=== PATIENT | female | born 1945 | race Two or more races ===

== ENCOUNTER 2020-01-26 21:32 | Inpatient (IN) | payer MEDICARE ==
--- NOTE | 2020-01-26 21:57 | ED ---
Abdominal Pain HPI - General Chief Complaint: Abdominal Pain Stated Complaint: Acute cholecystitis Time Seen by Provider: 01/26/20 21:40 Source: patient, RN/MD, EMS, RN notes reviewed Mode of arrival: EMS Limitations: no limitations - History of Present Illness Initial Comments: This is a 74-year-old female with a history of right-sided breast cancer over 20 years ago who just recently moved back to [place] from [place] who started developing upper abdominal pain over last several days. She was seen at [facility] and diagnosed with acute cholecystitis. Patient was transferred here for further evaluation and treatment. Patient was found have an elevated white blood cell count cholecystitis and CAT scan. Upon arrival here she complained of 5/10 pain no nausea or vomiting however she denies any fevers chills or sweats. MD Complaint: abdominal pain - Related Data Allergies Allergy/AdvReac Type Severity Reaction Status Date / Time Sulfa (Sulfonamide Allergy Rash/Hives Verified 01/26/20 21:47 Antibiotics) Review of Systems ROS Statement: Those systems with pertinent positive or pertinent negative responses have been documented in the HPI. ROS Other: All systems not noted in ROS Statement are negative. Past Medical History Past Medical History: Asthma, Cancer Additional Past Medical History / Comment(s): Right breast cancer 1993, History of Any Multi-Drug Resistant Organisms: None Reported Past Surgical History: Breast Surgery, Tonsillectomy Past Psychological History: No Psychological Hx Reported Smoking Status: Never smoker Past Alcohol Use History: Occasional Past Drug Use History: None Reported General Exam - General Exam Comments Initial Comments: This is a well-developed well-nourished awake alert oriented 3 female Limitations: no limitations General appearance: alert, in no apparent distress Head exam: Present: atraumatic, normocephalic, normal inspection Eye exam: Present: normal appearance, PERRL, EOMI. Absent: scleral icterus, conjunctival injection, periorbital swelling ENT exam: Present: normal exam, mucous membranes moist Neck exam: Present: normal inspection. Absent: tenderness, meningismus, lymphadenopathy Respiratory exam: Present: normal lung sounds bilaterally. Absent: respiratory distress, wheezes, rales, rhonchi, stridor Cardiovascular Exam: Present: regular rate, normal rhythm, normal heart sounds. Absent: systolic murmur, diastolic murmur, rubs, gallop, clicks GI/Abdominal exam: Present: soft, tenderness (Tennis palpation of the right upper quadrant), normal bowel sounds. Absent: distended, guarding, rebound, rigid Extremities exam: Present: normal inspection, full ROM, normal capillary refill. Absent: tenderness, pedal edema, joint swelling, calf tenderness Back exam: Present: normal inspection Neurological exam: Present: alert, oriented X3, CN II-XII intact Psychiatric exam: Present: normal affect, normal mood Skin exam: Present: warm, dry, intact, normal color. Absent: rash Course Vital Signs 01/26/20 21:34 Temperature 98.1 F Pulse Rate 88 Respiratory 16 Rate Blood Pressure 147/80 O2 Sat by Pulse 98 Oximetry Medical Decision Making - Medical Decision Making I did review the material sent from [facility] and did discuss case with Dr. Pandey who did send the patient also with Dr. Alfred. Patient be admitted nothing by mouth after midnight IV antibiotics planned surgery in the morning. Disposition Clinical Impression: Acute cholecystitis, Abdominal pain Disposition: ADMITTED IP TO THIS HOSP Condition: Fair Referrals: None,Stated [Primary Care Provider] - 1-2 days
[2020-01-26] MEDS ORDERED: NALOXONE 0.4 MG/ML 1 ML VIAL IV PRN (21:58)
[2020-01-26] MEDS ORDERED: ONDANSETRON 4 MG/2 ML VIAL IVP PRN (21:58)
[2020-01-26] MEDS: SODIUM CHLORIDE 0.9% 1,000 ML IV SCH (22:05)
[2020-01-26] MEDS ORDERED: PIPERACILLIN-TAZOBACTAM 3.375 GM in SODIUM CHLORIDE 0.9% 100 ML IVPB SCH (22:30)
[2020-01-26] MEDS: HYDROmorphone 1 MG/ML 1 ML SYRINGE IVP PRN (23:21)
[2020-01-27] MEDS: HYDROmorphone 1 MG/ML 1 ML SYRINGE IVP PRN ×2 (07:47→13:11)
[2020-01-27] MEDS: PANTOPRAZOLE 40 MG/10 ML VIAL IV SCH (07:48)
[2020-01-27] MEDS: PIPERACILLIN-TAZOBACTAM 3.375 GM in SODIUM CHLORIDE 0.9% 100 ML IVPB SCH ×2 (07:48→17:13)
--- NOTE | 2020-01-27 10:30 | P.GSHP ---
History of Present Illness H&P Date: 01/27/20 Chief Complaint: Abdominal pain CHIEF COMPLAINT: Abdominal pain HISTORY OF PRESENT ILLNESS: 74-year-old female who was transferred from [facility] secondary to acute cholecystitis. Patient reports she began having abdominal pain yesterday. Pain is located in the right upper quadrant. Patient denies known gallbladder disease. PAST MEDICAL HISTORY: See list. PAST SURGICAL HISTORY: See list. SOCIAL HISTORY: No illicit drug use. REVIEW OF SYSTEMS: CONSTITUTIONAL: Denies fever or chills. HEENT: Denies blurred vision, vision changes, or eye pain. Denies hemoptysis CARDIOVASCULAR: Denies chest pain or pressure. RESPIRATORY: No shortness of breath. GASTROINTESTINAL: Refer to [facility] for pertinent findings HEMATOLOGIC: Denies bleeding disorders. GENITOURINARY: Denies any blood in urine. SKIN: Denies pruitis. Denies rash. PHYSICAL EXAM: VITAL SIGNS: Reviewed. GENERAL: Well-developed in no acute distress. HEENT: No sclera icterus. Extraocular movements grossly intact. Moist buccal mucosa. Head is atraumatic, normocephalic. ABDOMEN: Soft. Nondistended. Tenderness with palpation of right upper quadrant. NEUROLOGIC: Alert and oriented. Cranial nerves II through XII grossly intact. LABORATORY DATA: Pending IMAGING: CT abdomen and pelvis: Uncomplicated acute cholecystitis due to lodged 1.7 cm gallstone in the gallbladder neck ASSESSMENT: 1. Abdominal pain 2. Acute cholecystitis 3. Cholelithiasis PLAN: -Continue IV antibiotics. Monitor WBC -NPO -Patient to undergo laparoscopic cholecystectomy today with Dr. Alfred Nurse practitioner note has been reviewed by physician. Signing provider agrees with the documented findings, assessment, and plan of care. Past Medical History Past Medical History: Asthma, Cancer Additional Past Medical History / Comment(s): Right breast cancer 1993, History of Any Multi-Drug Resistant Organisms: None Reported Past Surgical History: Breast Surgery, Tonsillectomy Past Anesthesia/Blood Transfusion Reactions: No Reported Reaction Past Psychological History: No Psychological Hx Reported Smoking Status: Never smoker Past Alcohol Use History: Occasional Past Drug Use History: None Reported Medications and Allergies Home Medications Medication Instructions Recorded Confirmed Type No Known Home Medications 01/26/20 01/26/20 History Allergies Allergy/AdvReac Type Severity Reaction Status Date / Time Sulfa (Sulfonamide Allergy Rash/Hives Verified 01/26/20 22:19 Antibiotics) Surgical - Exam Vital Signs Temp Pulse Resp BP Pulse Ox 98.1 F 88 16 147/80 98 01/26/20 21:34 01/26/20 21:34 01/26/20 21:34 01/26/20 21:34 01/26/20 21:34
[2020-01-27 11:27] LABS: Basophils % (A) 0 %; Eosinophils # (A) 0.1 k/uL (0-0.7); Eosinophils % (A) 1 %; HCT 30.3 % (34.0-46.0); HGB 9.4 gm/dL (11.4-16.0); Hypochromasia Moderate; Lymphocytes # (A) 0.5 k/uL (1.0-4.8); Lymphocytes % (A) 5 %; MCH 31.9 pg (25.0-35.0); MCHC 30.9 g/dL (31.0-37.0); MCV 103.2 fL (80.0-100.0); Macrocytosis Slight; Mean Platelet Volume 7.2; Monocytes # (A) 0.5 k/uL (0-1.0); Monocytes % (A) 5 %; Neutrophils # (A) 7.7 k/uL (1.3-7.7); Neutrophils % (A) 88 %; Platelet Count 182 k/uL (150-450); RBC 2.93 m/uL (3.80-5.40); RDW 14.1 % (11.5-15.5); WBC 8.7 k/uL (3.8-10.6)
[2020-01-27 11:44] LABS: ALT 26 U/L (4-34); AST 38 U/L (14-36); African American GFR (CKD) >90 (>60 ml/min/1.73 sqM); Albumin 1.8 g/dL (3.5-5.0); Alkaline Phosphatase 26 U/L (38-126); Anion Gap 5 mmol/L; Blood Urea Nitrogen 4 mg/dL (7-17); Carbon Dioxide 14 mmol/L (22-30); Chloride 123 mmol/L (98-107); Glucose 82 mg/dL (74-99); Non-African American GFR(CKD) >90 (>60 ml/min/1.73 sqM); Sodium 142 mmol/L (137-145); Total Bilirubin 1.3 mg/dL (0.2-1.3); Total Protein 3.7 g/dL (6.3-8.2)
[2020-01-27 11:57] LABS: Potassium 2.4 mmol/L (3.5-5.1)
[2020-01-27 11:58] LABS: Calcium 4.9 mg/dL (8.4-10.2)
[2020-01-27] MEDS ORDERED: Potassium Replacement Protocol 1 EACH MISC MISCELLANE PRN ×2 (12:09→12:26)
[2020-01-27] MEDS ORDERED: POTASSIUM CHLORIDE 20 MEQ in WATER FOR INJECTION 1 100ML.BAG IVPB STA (12:09)
[2020-01-27] MEDS ORDERED: POTASSIUM CHLORIDE ER 20 MEQ TAB.ER PO STA (12:10)
[2020-01-27] MEDS ORDERED: CALCIUM GLUCONATE 2 GM in SODIUM CHLORIDE 0.9% 100 ML IVPB ONE (12:27)
[2020-01-27] MEDS: SODIUM CHLORIDE 0.9% 1,000 ML IV SCH ×3 (12:37→22:50)
[2020-01-27] MEDS: POTASSIUM CHLORIDE 20 MEQ in WATER FOR INJECTION 1 100ML.BAG IVPB SCH ×3 (12:50→19:04)
[2020-01-27] MEDS ORDERED: HEPARIN SODIUM,PORCINE 5,000 UNIT/ML 1 ML VIAL SQ SCH (16:00)
[2020-01-27 16:18] LABS: African American GFR (CKD) >90 (>60 ml/min/1.73 sqM); Anion Gap 7 mmol/L; Blood Urea Nitrogen 6 mg/dL (7-17); Calcium 10.1 mg/dL (8.4-10.2); Carbon Dioxide 27 mmol/L (22-30); Chloride 105 mmol/L (98-107); Glucose 123 mg/dL (74-99); Non-African American GFR(CKD) >90 (>60 ml/min/1.73 sqM); Sodium 139 mmol/L (137-145)
[2020-01-27] MEDS ORDERED: LIDOCAINE 1% (10MG/ML) FOR IV START INTRADERMA PRN (18:47)
[2020-01-27] MEDS ORDERED: HYDROmorphone 0.5 MG/0.5 ML SYRINGE IVP PRN (18:47)
[2020-01-27] MEDS ORDERED: DEXAMETHASONE SOD PHOSPHATE 10 MG/ML 1 ML VIAL IV ONE (18:47)
[2020-01-27] MEDS ORDERED: ONDANSETRON 4 MG/2 ML VIAL IVP ONE (18:47)
[2020-01-27] MEDS ORDERED: NEOSTIGMINE 1 MG/ML 10 ML VIAL ONE (21:08)
[2020-01-27] MEDS ORDERED: SUCCINYLCHOLINE CHLORIDE 100 MG/5 ML SYR IV ONE (21:08)
[2020-01-27] MEDS ORDERED: IV FLUID CONTINUATION 300 ML IV ONE (21:08)
[2020-01-27] MEDS ORDERED: GLYCOPYRROLATE 0.2 MG/ML 2 ML VIAL ONE (21:08)
[2020-01-27] MEDS ORDERED: ROCURONIUM BROMIDE 10 MG/ML 5 ML VIAL IV ONE (21:08)
[2020-01-27] MEDS ORDERED: PROPOFOL 10 MG/ML 20 ML VIAL IV ONE (21:08)
[2020-01-27] MEDS ORDERED: MIDAZOLAM 2 MG/2 ML VIAL ONE (21:08)
[2020-01-27] MEDS ORDERED: LIDOCAINE 1% INJ 10MG/ML (20 ML MDV) ONE (21:08)
[2020-01-27] MEDS ORDERED: fentaNYL (PF) 50 MCG/ML 2 ML AMP ONE (21:08)
[2020-01-27] MEDS ORDERED: BUPIVACAINE (PF) 0.25% 30 ML VIAL SQ ONE (21:22)
[2020-01-27] MEDS ORDERED: LACTATED RINGERS 1,000 ML IV ONE (21:31)
--- NOTE | 2020-01-27 21:45 | P.OP ---
Date of Procedure: 01/27/20 Preoperative Diagnosis: Acute cholecystitis Postoperative Diagnosis: Acute gangrenous cholecystitis Procedure(s) Performed: Laparoscopic cholecystectomy Anesthesia: TAMAR Surgeon: Eric Alfred Estimated Blood Loss (ml): 50 Pathology: other (Gallbladder) Condition: stable Disposition: PACU Description of Procedure: The patient was placed on the operating table. The patient received a general endotracheal tube anesthesia. The patients abdomen was prepped and draped in the usual sterile fashion. Through an infraumbilical stab incision, the fascia of the anterior abdominal wall was grasped with a pair of Kochers and then the Veress needle was placed in the peritoneal cavity. Position of the Veress needle was confirmed with positive drop test. The abdomen was then insufflated. After adequate insufflation, the 10 mm trocar was placed in the peritoneal cavity. Following this the laparoscope was placed in the peritoneal cavity. The patient was placed in the head-up, right side up position and then a 5 mm trocar was placed in the right lateral and right subcostal position under direct visualization. A 8 mm trocar was placed in the epigastric position. The gallbladder appeared to have patchy necrosis. The gallbladder was grasped in the fundus and infundibulum. Traction on the gallbladder was placed in the lateral and the cephalad positions. The triangle of Calot was visualized.. The cystic duct was bluntly dissected until the union of the cystic duct and common bile duct was seen. A critical view of safety was achieved. The cystic duct was then divided and sealed with the Harmonic scissors. A PDS Endoloop was then placed throughout the cystic duct stump. The cystic artery divided and sealed with the Harmonic scissors. The gallbladder was then removed from the liver bed using Harmonic scissors. The gallbladder was then extracted through the epigastric port site. Operative field was checked for any bleeding spots and Harmonic scissors was used to coagulate the liver bed. The abdomen was irrigated. The trocars were removed. The skin was closed using interrupted 3-0 Vicryl suture. Dermabond dressing were applied. The patient tolerated the procedure well.
[2020-01-27] MEDS: HEPARIN SODIUM,PORCINE 5,000 UNIT/ML 1 ML VIAL SQ SCH (22:50)
[2020-01-27] MEDS: LACTATED RINGERS 1,000 ML IV SCH (23:03)
--- NOTE | 2020-01-27 23:23 | P.CONS ---
History of Present Illness - Reason for Consult Consult date: 01/27/20 Medical Managment - Chief Complaint Abdominal pain - History of Present Illness Patient is a 74-year-old female with a known history of asthma, right breast cancer status post surgery in 1993 and no prior history of smoking initially presented to [facility] due to complaints of not feeling well and abdominal discomfort mainly upper abdomen since last Sunday. Patient does not follow with primary care physician usually. Denied any complaints of chest pain or shortness of breath. Patient also has been having nausea and episodes of vomiting mainly bilious for the past 2 to [address] of the abdomen pelvis done at [facility] showed acute cholecystitis due to lodged 1.7 cm gallstone in the gallbladder neck . Patient denied any fever or chills. No cough or sputum production. No recent illnesses. No sick contacts. Patient was found to have elevated WBC count. Patient was eventually transferred to [facility] for evaluation by general surgery. Patient was severely hypokalemic as well as hypocalcemia in the laboratory work- up. Bicarb is 14. Hemoglobin 9.4, MCV 103.2 and platelets 182 Laboratory data and imaging studies reviewed from [facility] AST 38, ALT 26 alk phos 26, total bilirubin 1.3. Review of Systems Constitutional: Patient denies any fever or chills . No generalized weakness or weight loss. Abdomen: Patient does have nausea vomiting and abdominal pain. no diarrhea. Cardiovascular: Patient denies any chest pain or short of breath no palpitation s. Respiratory: patient denied any cough is from production. No shortness of breath Neurologic: Patient denied any numbness or tingling. Patient does have dizziness and headache and ringing ears. Musculoskeletal: Patient denies any complaints of joint swelling or deformity. Skin: Negative Psychiatric: Negative Endocrine: No heat or cold intolerance. No recent weight gain. Genitourinary: No dysuria or hematuria. All other 14 point ROS negative except the above Past Medical History Past Medical History: Asthma, Cancer Additional Past Medical History / Comment(s): Right breast cancer 1993, History of Any Multi-Drug Resistant Organisms: None Reported Past Surgical History: Breast Surgery, Tonsillectomy Past Anesthesia/Blood Transfusion Reactions: No Reported Reaction Past Psychological History: No Psychological Hx Reported Smoking Status: Never smoker Past Alcohol Use History: Occasional Past Drug Use History: None Reported Medications and Allergies Home Medications Medication Instructions Recorded Confirmed Type No Known Home Medications 01/26/20 01/26/20 History Allergies Allergy/AdvReac Type Severity Reaction Status Date / Time Sulfa (Sulfonamide Allergy Rash/Hives Verified 01/26/20 22:19 Antibiotics) Physical Exam Vitals: Vital Signs Temp Pulse Pulse Resp BP BP Pulse Ox 01/27/20 07:00 100.1 F H 105 H 18 116/81 98 01/27/20 00:00 78 15 01/26/20 22:32 97.4 F L 78 15 171/48 98 01/26/20 21:34 98.1 F 88 16 147/80 98 Intake and Output 01/26/20 01/27/20 01/27/20 22:59 06:59 14:59 Other: Weight 60.781 kg PHYSICAL EXAMINATION: Patient is lying in the bed comfortably, no acute distress, awake alert and oriented.. HEENT: Normocephalic. Neck is supple. Pupils reactive. Nostrils clear. Oral cavity is moist. Ears reveal no drainage. Neck reveals no JVD, carotid bruits, or thyromegaly. CHEST EXAMINATION: Trachea is central. Symmetrical expansion. Lung pittman clear to auscultation and percussion. CARDIAC: Normal S1, S2 with no gallops. No murmurs ABDOMEN: Soft. Epi and RUQ tenderness, Bowel sounds normal. No organomegaly. No abdominal bruits. Extremities: reveal no edema. No clubbing or cyanosis Neurologically awake, alert, oriented x3 with well-coordinated movements. No focal deficits noted Skin: No rash or skin lesions. Psychiatric: Coperative. Nonsuicidal Musculoskeletal: No joint swelling or deformity. Normal range of motion. Results CBC & Chem 7: 01/27/20 11:23 01/27/20 15:42 Assessment and Plan Assessment: Right upper quadrant abdominal pain secondary to acute cholecystitis. Obstructing stone at the neck of the gallbladder. Severe hypokalemia Hypocalcemia Leukocytosis improved. Asthma stable History of right breast cancer status post surgery 1993 No prior history of smoking DVT prophylaxis. Plan: Patient will be continued on IV hydration and empiric antibiotics in the form of Zosyn. Follow-up culture reports. Liver enzymes and alk phos is not elevated. No hyperbilirubinemia. CT of the abdomen showed acute cholecystitis with obstructing stone in the gallbladder neck. General surgery is planning for cholecystectomy today. Replace potassium and calcium. We will check TSH B12, folate and vitamin D levels. Repeat labs at 4 PM. Further recommendations based on the clinical course. Thank you for your consult. Time with Patient: Greater than 30
[2020-01-28] MEDS: PIPERACILLIN-TAZOBACTAM 3.375 GM in SODIUM CHLORIDE 0.9% 100 ML IVPB SCH ×4 (00:09→22:30)
[2020-01-28] MEDS: POTASSIUM CHLORIDE 20 MEQ in WATER FOR INJECTION 1 100ML.BAG IVPB SCH (02:40)
[2020-01-28] MEDS: HYDROmorphone 1 MG/ML 1 ML SYRINGE IVP PRN (02:43)
[2020-01-28] MEDS: SODIUM CHLORIDE 0.9% 1,000 ML IV SCH ×4 (04:41→22:34)
[2020-01-28 07:38] LABS: Basophils % (A) 0 %; Eosinophils % (A) 0 %; HCT 42.6 % (34.0-46.0); Lymphocytes # (A) 0.8 k/uL (1.0-4.8); Lymphocytes % (A) 8 %; MCH 31.7 pg (25.0-35.0); MCHC 31.6 g/dL (31.0-37.0); MCV 100.3 fL (80.0-100.0); Mean Platelet Volume 8.1; Monocytes # (A) 0.5 k/uL (0-1.0); Monocytes % (A) 5 %; Neutrophils # (A) 9.5 k/uL (1.3-7.7); Neutrophils % (A) 86 %; Platelet Count 221 k/uL (150-450); RBC 4.24 m/uL (3.80-5.40); RDW 13.9 % (11.5-15.5)
[2020-01-28 07:40] LABS: ALT 72 U/L (4-34); AST 84 U/L (14-36); African American GFR (CKD) >90 (>60 ml/min/1.73 sqM); Albumin 3.7 g/dL (3.5-5.0); Alkaline Phosphatase 71 U/L (38-126); Anion Gap 9 mmol/L; Blood Urea Nitrogen 6 mg/dL (7-17); Calcium 9.2 mg/dL (8.4-10.2); Carbon Dioxide 22 mmol/L (22-30); Chloride 108 mmol/L (98-107); Glucose 102 mg/dL (74-99); Non-African American GFR(CKD) >90 (>60 ml/min/1.73 sqM); Potassium 4.9 mmol/L (3.5-5.1); Sodium 139 mmol/L (137-145); Total Bilirubin 2.5 mg/dL (0.2-1.3); Total Protein 6.8 g/dL (6.3-8.2)
[2020-01-28 07:44] LABS: HGB 13.5 gm/dL (11.4-16.0)
[2020-01-28] MEDS: PANTOPRAZOLE 40 MG/10 ML VIAL IV SCH (09:58)
[2020-01-28] MEDS: HEPARIN SODIUM,PORCINE 5,000 UNIT/ML 1 ML VIAL SQ SCH ×2 (09:58→22:30)
[2020-01-28] MEDS: HYDROcodone/APAP 5-325MG 1 EACH TAB PO PRN ×2 (11:29→22:30)
[2020-01-28] MEDS: KETOROLAC 30 MG/ML 1 ML VIAL IVP SCH ×2 (12:08→17:33)
[2020-01-28] MEDS ORDERED: ERGOCALCIFEROL 50,000 UNIT CAP PO SCH (13:00)
--- NOTE | 2020-01-28 13:04 | P.PN ---
Subjective Progress Note Date: 01/28/20 CHIEF COMPLAINT: Abdominal pain HISTORY OF PRESENT ILLNESS: Patient is status post laparoscopic cholecystectomy secondary to acute gangrenous cholecystitis. Postop day #1. Patient examined at bedside with Dr. Alfred. Patient reports abdominal pain and discomfort. Tolerating diet without nausea or vomiting. WBC 11.0. Bilirubin 2.5. PHYSICAL EXAM: VITAL SIGNS: Reviewed. GENERAL: Well-developed in no acute distress. HEENT: No sclera icterus. Extraocular movements grossly intact. Moist buccal mucosa. Head is atraumatic, normocephalic. ABDOMEN: Soft. Nondistended. Appropriate surgical tenderness. Surgical sites clean dry and intact without drainage or erythema. NEUROLOGIC: Alert and oriented. Cranial nerves II through XII grossly intact. ASSESSMENT: 1. Abdominal pain 2. Acute gangrenous cholecystitis 3. Cholelithiasis PLAN: -Continue IV antibiotics. Monitor WBC -Continue diet as tolerated -Pain control. Continue IV Dilaudid and [place]. Add ToradolPRN -Monitor labs. Repeat CBC and CMP in a.m. -Incentive spirometer Nurse practitioner note has been reviewed by physician. Signing provider agrees with the documented findings, assessment, and plan of care. Objective - Vital Signs Vital signs: Vital Signs Temp 98.9 F 01/28/20 07:00 Pulse 92 01/28/20 07:00 Resp 18 01/28/20 07:00 BP 184/80 01/28/20 07:00 Pulse Ox 98 01/28/20 07:00 Intake & Output 01/27/20 01/28/20 01/28/20 18:59 06:59 18:59 Intake Total 500 Output Total 75 Balance 425 Intake: IV 500 Output: Estimated Blood Loss 75 Other: # Voids 2 2 - Labs CBC & Chem 7: 01/28/20 06:42 01/28/20 06:42 Labs: Abnormal Lab Results - Last 24 Hours (Table) 01/27/20 01/27/20 01/28/20 Range/Units 15:42 15:42 06:42 WBC 11.0 H (3.8-10.6) k/uL MCV 100.3 H (80.0-100.0) fL Neutrophils # 9.5 H (1.3-7.7) k/uL Lymphocytes # 0.8 L (1.0-4.8) k/uL Chloride (98-107) mmol/L BUN 6 L (7-17) mg/dL Creatinine 0.41 L (0.52-1.04) mg/dL Glucose 123 H (74-99) mg/dL Total Bilirubin (0.2-1.3) mg/dL AST (14-36) U/L ALT (4-34) U/L Vitamin D 25-Hydroxy 19.6 L (30.0-100.0) ng/mL 01/28/20 Range/Units 06:42 WBC (3.8-10.6) k/uL MCV (80.0-100.0) fL Neutrophils # (1.3-7.7) k/uL Lymphocytes # (1.0-4.8) k/uL Chloride 108 H (98-107) mmol/L BUN 6 L (7-17) mg/dL Creatinine 0.37 L (0.52-1.04) mg/dL Glucose 102 H (74-99) mg/dL Total Bilirubin 2.5 H (0.2-1.3) mg/dL AST 84 H (14-36) U/L ALT 72 H (4-34) U/L Vitamin D 25-Hydroxy (30.0-100.0) ng/mL
[2020-01-28] MEDS: LACTATED RINGERS 1,000 ML IV SCH (22:22)
[2020-01-29] MEDS: KETOROLAC 30 MG/ML 1 ML VIAL IVP SCH ×5 (00:39→23:43)
[2020-01-29] MEDS: PANTOPRAZOLE 40 MG/10 ML VIAL IV SCH (07:24)
[2020-01-29] MEDS: PIPERACILLIN-TAZOBACTAM 3.375 GM in SODIUM CHLORIDE 0.9% 100 ML IVPB SCH ×3 (07:24→23:43)
[2020-01-29] MEDS: HEPARIN SODIUM,PORCINE 5,000 UNIT/ML 1 ML VIAL SQ SCH ×2 (07:24→23:43)
[2020-01-29 08:34] LABS: Basophils % (A) 0 %; Eosinophils # (A) 0.2 k/uL (0-0.7); Eosinophils % (A) 2 %; HCT 37.2 % (34.0-46.0); HGB 11.6 gm/dL (11.4-16.0); Lymphocytes # (A) 0.8 k/uL (1.0-4.8); Lymphocytes % (A) 10 %; MCH 31.3 pg (25.0-35.0); MCHC 31.3 g/dL (31.0-37.0); MCV 100.2 fL (80.0-100.0); Mean Platelet Volume 7.9; Monocytes # (A) 0.4 k/uL (0-1.0); Monocytes % (A) 5 %; Neutrophils # (A) 6.4 k/uL (1.3-7.7); Neutrophils % (A) 81 %; Platelet Count 241 k/uL (150-450); RBC 3.72 m/uL (3.80-5.40); RDW 13.8 % (11.5-15.5); WBC 7.9 k/uL (3.8-10.6)
[2020-01-29 08:49] LABS: ALT 52 U/L (4-34); AST 45 U/L (14-36); African American GFR (CKD) >90 (>60 ml/min/1.73 sqM); Albumin 3.2 g/dL (3.5-5.0); Alkaline Phosphatase 74 U/L (38-126); Anion Gap 6 mmol/L; Blood Urea Nitrogen 7 mg/dL (7-17); Carbon Dioxide 22 mmol/L (22-30); Chloride 110 mmol/L (98-107); Glucose 96 mg/dL (74-99); Non-African American GFR(CKD) >90 (>60 ml/min/1.73 sqM); Potassium 3.6 mmol/L (3.5-5.1); Sodium 138 mmol/L (137-145); Total Bilirubin 2.4 mg/dL (0.2-1.3)
--- NOTE | 2020-01-29 09:58 | P.PN ---
Subjective Progress Note Date: 01/28/20 Principal diagnosis: acute gangrenous cholecystitis Patient is a 74-year-old female with a known history of asthma, right breast cancer status post surgery in 1993 and no prior history of smoking initially presented to [facility] due to complaints of not feeling well and a bdominal discomfort mainly upper abdomen since last Sunday. Patient does not follow with primary care physician usually. Denied any complaints of chest pain or shortness of breath. Patient also has been having nausea and episodes of vomiting mainly bilious for the past 2 to [address] of the abdomen pelvis done at [facility] showed acute cholecystitis due to lodged 1.7 cm gallstone in the gallbladder neck . Patient denied any fever or chills. No cough or sputum production. No recent illnesses. No sick contacts. Patient was found to have elevated WBC count. Patient was eventually transferred to [facility] for evaluation by general surgery. Patient was severely hypokalemic as well as hypocalcemia in the laboratory work- up. Bicarb is 14. Hemoglobin 9.4, MCV 103.2 and platelets 182 Laboratory data and imaging studies reviewed from [facility] AST 38, ALT 26 alk phos 26, total bilirubin 1.3. 01/28/2020 patient is currently lying in the bed comfortably. Still having abdominal pain mainly right upper quadrant and is the surgical site.patient has been afebrile otherwise. Currently being continued on antibiotics Zosyn for gangrenous acute cholecystitis. Patient underwent Laparoscopic cholecystectomy. Patient will be started on liquid diet and advance as tolerated. blood pressure is maintained. patient does have nausea. No abscess or vomiting. No diarrhea. No compressive chest pain or worsening shortness of breath. current medications reviewed. Objective - Vital Signs Vital signs: Vital Signs Temp 98.9 F 01/28/20 07:00 Pulse 92 01/28/20 07:00 Resp 18 01/28/20 07:00 BP 184/80 01/28/20 07:00 Pulse Ox 98 01/28/20 07:00 Intake & Output 01/27/20 01/28/20 01/28/20 18:59 06:59 18:59 Intake Total 500 Output Total 75 Balance 425 Intake: IV 500 Output: Estimated Blood Loss 75 Other: # Voids 2 2 - Exam PHYSICAL EXAMINATION: Patient is lying in the bed comfortably, no acute distress, awake alert and oriented.. HEENT: Normocephalic. Neck is supple. Pupils reactive. Nostrils clear. Oral cavity is moist. Ears reveal no drainage. Neck reveals no JVD, carotid bruits, or thyromegaly. CHEST EXAMINATION: Trachea is central. Symmetrical expansion. Lung pittman clear to auscultation and percussion. CARDIAC: Normal S1, S2 with no gallops. No murmurs ABDOMEN: Soft. Bowel sounds normal. No organomegaly. No abdominal bruits. ami gical site intact. Tenderness over the site. Extremities: reveal no edema. No clubbing or cyanosis Neurologically awake, alert, oriented x3 with well-coordinated movements. No focal deficits noted Skin: No rash or skin lesions. Psychiatric: Coperative. Nonsuicidal Musculoskeletal: No joint swelling or deformity. Normal range of motion. - Labs CBC & Chem 7: 01/29/20 08:03 01/29/20 08:03 Labs: Abnormal Lab Results - Last 24 Hours (Table) 01/27/20 01/27/20 01/28/20 Range/Units 15:42 15:42 06:42 WBC 11.0 H (3.8-10.6) k/uL MCV 100.3 H (80.0-100.0) fL Neutrophils # 9.5 H (1.3-7.7) k/uL Lymphocytes # 0.8 L (1.0-4.8) k/uL Chloride (98-107) mmol/L BUN 6 L (7-17) mg/dL Creatinine 0.41 L (0.52-1.04) mg/dL Glucose 123 H (74-99) mg/dL Total Bilirubin (0.2-1.3) mg/dL AST (14-36) U/L ALT (4-34) U/L Vitamin D 25-Hydroxy 19.6 L (30.0-100.0) ng/mL 01/28/20 Range/Units 06:42 WBC (3.8-10.6) k/uL MCV (80.0-100.0) fL Neutrophils # (1.3-7.7) k/uL Lymphocytes # (1.0-4.8) k/uL Chloride 108 H (98-107) mmol/L BUN 6 L (7-17) mg/dL Creatinine 0.37 L (0.52-1.04) mg/dL Glucose 102 H (74-99) mg/dL Total Bilirubin 2.5 H (0.2-1.3) mg/dL AST 84 H (14-36) U/L ALT 72 H (4-34) U/L Vitamin D 25-Hydroxy (30.0-100.0) ng/mL Assessment and Plan Assessment: Right upper quadrant abdominal pain secondary to acutegangrenous keshav cystitis.status post laparoscopic cholecystectomy. Obstructing stone at the neck of the gallbladder. Severe hypokalemia. Improved Hypocalcemia Leukocytosis improved. Asthma stable History of right breast cancer status post surgery 1994 No prior history of smoking DVT prophylaxis. Plan: Patient will be continued on IV hydration and empiric antibiotics in the form of Zosyn. Follow-up culture reports. Liver enzymes and alk phos is not elevated. No hyperbilirubinemia. CT of the abdomen showed acute cholecystitis with obstructing stone in the gallbladder neck. patient is status post laparoscopic cholecystectomy. Replace potassium and calcium. TSH B12, folate within normal limitsand vitamin D levelsslightly lower. started on vitamin D supplementation. Further recommendations based on the clinical course. Thank you for your consult. Time with Patient: Greater than 30
[2020-01-29] MEDS: SODIUM CHLORIDE 0.9% 1,000 ML IV SCH ×2 (12:39→23:49)
--- NOTE | 2020-01-29 14:59 | P.PN ---
Subjective Progress Note Date: 01/29/20 CHIEF COMPLAINT: Abdominal pain HISTORY OF PRESENT ILLNESS: Patient is status post laparoscopic cholecystectomy secondary to acute gangrenous cholecystitis. Postop day #2. Patient examined at bedside with Dr. Alfred. Patient reports abdominal pain and discomfort, but states it has improved since yesterday. Tolerating diet without nausea or vomiting. WBC 7.9. Bilirubin 2.4. PHYSICAL EXAM: VITAL SIGNS: Reviewed. GENERAL: Well-developed in no acute distress. HEENT: No sclera icterus. Extraocular movements grossly intact. Moist buccal mucosa. Head is atraumatic, normocephalic. ABDOMEN: Soft. Nondistended. Appropriate surgical tenderness. Surgical sites clean dry and intact without drainage or erythema. NEUROLOGIC: Alert and oriented. Cranial nerves II through XII grossly intact. ASSESSMENT: 1. Abdominal pain 2. Acute gangrenous cholecystitis 3. Cholelithiasis PLAN: -Continue IV antibiotics. Monitor WBC -Continue diet as tolerated -Pain control -Monitor labs. Repeat CBC and CMP in a.m. -Incentive spirometer -Possible discharge home tomorrow Nurse practitioner note has been reviewed by physician. Signing provider agrees with the documented findings, assessment, and plan of care. Objective - Vital Signs Vital signs: Vital Signs Temp 98.5 F 01/29/20 07:00 Pulse 86 01/29/20 07:00 Resp 18 01/29/20 07:00 BP 156/81 01/29/20 07:00 Pulse Ox 95 01/29/20 07:00 Intake & Output 01/28/20 01/29/20 01/29/20 18:59 06:59 18:59 Other: # Voids 2 2 1 - Labs CBC & Chem 7: 01/29/20 08:03 01/29/20 08:03 Labs: Abnormal Lab Results - Last 24 Hours (Table) 01/29/20 01/29/20 Range/Units 08:03 08:03 RBC 3.72 L (3.80-5.40) m/uL MCV 100.2 H (80.0-100.0) fL Lymphocytes # 0.8 L (1.0-4.8) k/uL Chloride 110 H (98-107) mmol/L Creatinine 0.42 L (0.52-1.04) mg/dL Total Bilirubin 2.4 H (0.2-1.3) mg/dL AST 45 H (14-36) U/L ALT 52 H (4-34) U/L Total Protein 6.0 L (6.3-8.2) g/dL Albumin 3.2 L (3.5-5.0) g/dL
[2020-01-29] MEDS: LACTATED RINGERS 1,000 ML IV SCH (17:42)
[2020-01-29 20:11] VITALS: RESP 18
--- NOTE | 2020-01-30 00:28 | P.PN ---
Subjective Progress Note Date: 01/29/20 Principal diagnosis: acute gangrenous cholecystitis Patient is a 74-year-old female with a known history of asthma, right breast cancer status post surgery in 1993 and no prior history of smoking initially presented to [facility] due to complaints of not feeling well and a bdominal discomfort mainly upper abdomen since last Sunday. Patient does not follow with primary care physician usually. Denied any complaints of chest pain or shortness of breath. Patient also has been having nausea and episodes of vomiting mainly bilious for the past 2 to [address] of the abdomen pelvis done at [facility] showed acute cholecystitis due to lodged 1.7 cm gallstone in the gallbladder neck . Patient denied any fever or chills. No cough or sputum production. No recent illnesses. No sick contacts. Patient was found to have elevated WBC count. Patient was eventually transferred to [facility] for evaluation by general surgery. Patient was severely hypokalemic as well as hypocalcemia in the laboratory work- up. Bicarb is 14. Hemoglobin 9.4, MCV 103.2 and platelets 182 Laboratory data and imaging studies reviewed from [facility] AST 38, ALT 26 alk phos 26, total bilirubin 1.3. 01/28/2020 patient is currently lying in the bed comfortably. Still having abdominal pain mainly right upper quadrant and is the surgical site.patient has been afebrile otherwise. Currently being continued on antibiotics Zosyn for gangrenous acute cholecystitis. Patient underwent Laparoscopic cholecystectomy. Patient will be started on liquid diet and advance as tolerated. blood pressure is maintained. patient does have nausea. No nausea or vomiting. No diarrhea. No compressive chest pain or worsening shortness of breath. 01/29/2020 Patient is currently lying in the bed comfortably. Still having abdominal discomfort but controlled with medications. No nausea vomiting or diarrhea. Patient has been afebrile. Currently being continued on antibiotics involve Zosyn due to gangrenous cholecystitis. Tolerating oral diet and advance. No complaints of chest pain or shortness of breath. Leukocytosis improved. Liver enzymes are trending down. Bilirubin level improved from 2.5-2.4 today. current medications reviewed. Objective - Vital Signs Vital signs: Vital Signs Temp 98.4 F 01/29/20 15:00 Pulse 81 01/29/20 15:00 Resp 17 01/29/20 15:00 BP 136/71 01/29/20 15:00 Pulse Ox 98 01/29/20 15:00 Intake & Output 01/28/20 01/29/20 01/29/20 18:59 06:59 18:59 Other: # Voids 2 2 1 - Exam PHYSICAL EXAMINATION: Patient is lying in the bed comfortably, no acute distress, awake alert and oriented.. HEENT: Normocephalic. Neck is supple. Pupils reactive. Nostrils clear. Oral cavity is moist. Ears reveal no drainage. Neck reveals no JVD, carotid bruits, or thyromegaly. CHEST EXAMINATION: Trachea is central. Symmetrical expansion. Lung pittman clear to auscultation and percussion. CARDIAC: Normal S1, S2 with no gallops. No murmurs ABDOMEN: Soft. Bowel sounds normal. No organomegaly. No abdominal bruits. surgical site intact. Tenderness over the site. Extremities: reveal no edema. No clubbing or cyanosis Neurologically awake, alert, oriented x3 with well-coordinated movements. No focal deficits noted Skin: No rash or skin lesions. Psychiatric: Coperative. Nonsuicidal Musculoskeletal: No joint swelling or deformity. Normal range of motion. - Labs CBC & Chem 7: 01/29/20 08:03 01/29/20 08:03 Labs: Abnormal Lab Results - Last 24 Hours (Table) 01/29/20 01/29/20 Range/Units 08:03 08:03 RBC 3.72 L (3.80-5.40) m/uL MCV 100.2 H (80.0-100.0) fL Lymphocytes # 0.8 L (1.0-4.8) k/uL Chloride 110 H (98-107) mmol/L Creatinine 0.42 L (0.52-1.04) mg/dL Total Bilirubin 2.4 H (0.2-1.3) mg/dL AST 45 H (14-36) U/L ALT 52 H (4-34) U/L Total Protein 6.0 L (6.3-8.2) g/dL Albumin 3.2 L (3.5-5.0) g/dL Assessment and Plan Assessment: Right upper quadrant abdominal pain secondary to acutegangrenous cholecystitis.status post laparoscopic cholecystectomy.. POD #2 Obstructing stone at the neck of the gallbladder. Elevated liver enzymes and hyperbilirubinemia improving. Severe hypokalemia. Improved Hypocalcemia Leukocytosis improved. Asthma stable History of right breast cancer status post surgery 1994 No prior history of smoking DVT prophylaxis. Plan: Patient will be continued on IV hydration and antibiotics in the form of Zosyn. Liver enzymes and alk phos, hyperbilirubinemia Levels improving. . CT of the abdomen showed acute cholecystitis with obstructing stone in the gallbladder neck. patient is status post laparoscopic cholecystectomy. Replace potassium and calcium. TSH B12, folate within normal limitsand vitamin D levelsslightly lower. started on vitamin D supplementation. Further recommendations based on the clinical course. Anticipate discharge in the next 24 hours. Time with Patient: Greater than 30
[2020-01-30] MEDS: SODIUM CHLORIDE 0.9% 1,000 ML IV SCH (03:53)
[2020-01-30] MEDS: KETOROLAC 30 MG/ML 1 ML VIAL IVP SCH ×2 (06:15→12:15)
[2020-01-30] MEDS: PIPERACILLIN-TAZOBACTAM 3.375 GM in SODIUM CHLORIDE 0.9% 100 ML IVPB SCH (07:22)
[2020-01-30 08:07] VITALS: BP 158/69; PULSE 81; TEMP 97.9
[2020-01-30] MEDS: HEPARIN SODIUM,PORCINE 5,000 UNIT/ML 1 ML VIAL SQ SCH (08:58)
[2020-01-30] MEDS: PANTOPRAZOLE 40 MG/10 ML VIAL IV SCH (08:58)
[2020-01-30 09:03] LABS: Basophils % (A) 0 %; Eosinophils # (A) 0.2 k/uL (0-0.7); Eosinophils % (A) 4 %; HCT 34.4 % (34.0-46.0); HGB 10.9 gm/dL (11.4-16.0); Hypochromasia Slight; Lymphocytes # (A) 0.8 k/uL (1.0-4.8); Lymphocytes % (A) 15 %; MCH 31.9 pg (25.0-35.0); MCHC 31.7 g/dL (31.0-37.0); MCV 100.4 fL (80.0-100.0); Mean Platelet Volume 8.1; Monocytes # (A) 0.3 k/uL (0-1.0); Monocytes % (A) 6 %; Neutrophils # (A) 3.9 k/uL (1.3-7.7); Neutrophils % (A) 72 %; Platelet Count 268 k/uL (150-450); RBC 3.42 m/uL (3.80-5.40); RDW 13.7 % (11.5-15.5); WBC 5.4 k/uL (3.8-10.6)
[2020-01-30 09:19] LABS: ALT 55 U/L (4-34); AST 47 U/L (14-36); African American GFR (CKD) >90 (>60 ml/min/1.73 sqM); Albumin 3.1 g/dL (3.5-5.0); Alkaline Phosphatase 97 U/L (38-126); Anion Gap 9 mmol/L; Blood Urea Nitrogen 5 mg/dL (7-17); Calcium 8.9 mg/dL (8.4-10.2); Carbon Dioxide 21 mmol/L (22-30); Chloride 111 mmol/L (98-107); Glucose 104 mg/dL (74-99); Non-African American GFR(CKD) >90 (>60 ml/min/1.73 sqM); Potassium 3.4 mmol/L (3.5-5.1); Sodium 141 mmol/L (137-145); Total Bilirubin 1.5 mg/dL (0.2-1.3); Total Protein 5.7 g/dL (6.3-8.2)
--- NOTE | 2020-01-30 13:55 | P.DS ---
Providers Date of admission: 01/28/20 07:45 Expected date of discharge: 01/30/20 Attending physician: Eric Alfred Consults: 01/27/20 08:07 Consult Physician Routine Consulting Provider: Trisha Awad Consult Reason/Comments: medical management Do you want consulting provider notified?: Yes Primary care physician: Stated None Hospital Course: 74 -year-old female who underwent laparoscopic cholecystectomy secondary to acute gangrenous cholecystitis. patient is doing well postoperatively without any immediate complications. She is tolerating diet without nausea or vomiting. Pain controlled on oral medications. Vital signs are stable. She is stable for discharge home today. Please see EMR for further hospital course details. Discharge Diagnosis: 1. Abdominal pain 2. Acute gangrenous cholecystitis 3. Cholelithiasis Nurse practitioner note has been reviewed by physician. Signing provider agrees with the documented findings, assessment, and plan of care. Patient Condition at Discharge: Stable Plan - Discharge Summary Discharge Rx Participant: Yes New Discharge Prescriptions: New Levofloxacin [Levaquin] 500 mg PO DAILY 7 Days #7 tab Hydrocodone/Acetaminophen [[place] 5-325] 1 tab PO Q6HR PRN #10 tab PRN Reason: Pain Discharge Medication List Hydrocodone/Acetaminophen [[place] 5-325] 1 tab PO Q6HR PRN #10 tab 01/30/20 [Rx] Levofloxacin [Levaquin] 500 mg PO DAILY 7 Days #7 tab 01/30/20 [Rx] Follow up Appointment(s)/Referral(s): None,Stated [Primary Care Provider] - 1-2 days Eric Alfred MD [STAFF PHYSICIAN] - 1 Week Activity/Diet/Wound Care/Special Instructions: No driving while taking [place] No lifting over 10 pounds You may shower. No soaking or tub baths Very light activity until you are reevaluated at your follow up appointment with your surgeon
== END 2020-01-30 14:35 | disposition home or self-care (01) | DRG 419 ==
LOC: EC 21:32 → 4SSUR 21:58 → OBSVTOIN 01-28 07:45
PROVIDERS: ADMIT Surgery; ATTEND Surgery
PROC: 0FT44ZZ Resection of Gallbladder, Percutaneous Endoscopic Approach (ICD-10-PCS; principal; 2020-01-27 09:15)
DX: K80.01 Calculus of gallbladder with acute cholecystitis with obstruction (principal); K82.A1 Gangrene of gallbladder in cholecystitis; E83.51 Hypocalcemia; E87.6 Hypokalemia; J45.909 Unspecified asthma, uncomplicated; D72.829 Elevated white blood cell count, unspecified; Z11.59 Encounter for screening for other viral diseases; Z85.3 Personal history of malignant neoplasm of breast; Z88.2 Allergy status to sulfonamides
CPT/HCPCS: 80048; 80053; 82306; 82607; 82747; 84443; 85025; 87635; 88304; 99285

== ENCOUNTER 2021-03-14 08:38 | Inpatient (IN) | payer MEDICARE ==
[2021-03-14] MEDS ORDERED: SODIUM CHLORIDE 0.9% 1,000 ML IV STA (08:55)
--- NOTE | 2021-03-14 08:58 | ED ---
General Adult HPI - General Chief complaint: Fall Stated complaint: fall Time Seen by Provider: 03/14/21 08:43 Source: patient, family, EMS, RN notes reviewed Mode of arrival: EMS Limitations: no limitations - History of Present Illness Initial comments: Patient is a pleasant 75-year-old female presenting to the emergency department with complaints of right hip pain. Onset of symptoms was last night. Patient tripped over her feet and fell last night. Patient was unable to get up since that time. Patient was lying on the ground throughout the night. Patient does have right hip pain however is only with movement. No discomfort at this time following medication by EMS. No head injury or loss of consciousness. Patient denies syncope. No chest pain or dyspnea. No abdominal or back pain. - Related Data Home Medications Medication Instructions Recorded Confirmed Aspirin EC [Ecotrin Low Dose] 81 mg PO HS 03/14/21 03/14/21 Metoprolol Succinate [Toprol XL] 100 mg PO DAILY 03/14/21 03/14/21 Simvastatin [Zocor] 40 mg PO HS 03/14/21 03/14/21 Valsartan/Hydrochlorothiazide 1 tab PO DAILY 03/14/21 03/14/21 [Valsartan-Hctz 160-25 mg Tab] Allergies Allergy/AdvReac Type Severity Reaction Status Date / Time Sulfa (Sulfonamide Allergy Rash/Hives Verified 03/14/21 09:41 Antibiotics) Review of Systems ROS Statement: Those systems with pertinent positive or pertinent negative responses have been documented in the HPI. ROS Other: All systems not noted in ROS Statement are negative. Constitutional: Denies: fever Eyes: Denies: eye pain ENT: Denies: ear pain Respiratory: Denies: cough Cardiovascular: Denies: chest pain Endocrine: Denies: fatigue Gastrointestinal: Denies: abdominal pain Genitourinary: Denies: dysuria Musculoskeletal: Reports: as per HPI Skin: Denies: rash Neurological: Denies: headache, weakness Past Medical History Past Medical History: Asthma, Cancer Additional Past Medical History / Comment(s): Right breast cancer 1993, History of Any Multi-Drug Resistant Organisms: None Reported Past Surgical History: Breast Surgery, Tonsillectomy Past Anesthesia/Blood Transfusion Reactions: No Reported Reaction Past Psychological History: No Psychological Hx Reported Smoking Status: Former smoker Past Alcohol Use History: Occasional Past Drug Use History: None Reported General Exam Limitations: no limitations General appearance: alert, in no apparent distress Head exam: Present: atraumatic, normocephalic Eye exam: Present: normal appearance, PERRL, EOMI. Absent: nystagmus ENT exam: Present: normal oropharynx Neck exam: Present: normal inspection. Absent: tenderness Respiratory exam: Present: normal lung sounds bilaterally Cardiovascular Exam: Present: regular rate, normal rhythm Expanded Peripheral pulses: 2+: Dorsalis Pedis (R), Dorsalis Pedis (L) GI/Abdominal exam: Present: soft. Absent: tenderness Extremities exam: Present: normal inspection, other (Distal extremity is neurovascularly intact). Absent: full ROM (Significant pain with attempted range of motion right hip), tenderness Back exam: Present: normal inspection Neurological exam: Present: alert, oriented X3. Absent: motor sensory deficit Psychiatric exam: Present: normal affect, normal mood Skin exam: Present: normal color Course Vital Signs 03/14/21 08:39 Temperature 98.2 F Pulse Rate 115 H Respiratory 18 Rate Blood Pressure 182/91 O2 Sat by Pulse 98 Oximetry - Reevaluation(s) Reevaluation #1: 03/14/21 08:48 Patient refuses pain medications at this time 03/14/21 10:36 Patient reevaluated. Patient and family updated. Case discussed with practitioner Tona, covering with Dr. Hearn, who will admit EKG Findings - EKG Comments: EKG Findings:: Sinus tachycardia with a rate of 114. MO 158. QRS 90. QT 334. QTC or 60. Left axis. Normal QRS. Prominent T waves. Medical Decision Making - Lab Data Result diagrams: 03/14/21 08:53 03/14/21 08:53 Lab Results 03/14/21 03/14/21 03/14/21 Range/Units 08:53 08:53 08:53 WBC 10.6 (3.8-10.6) k/uL RBC 4.08 (3.80-5.40) m/uL Hgb 13.2 (11.4-16.0) gm/dL Hct 38.2 (34.0-46.0) % MCV 93.8 (80.0-100.0) fL MCH 32.4 (25.0-35.0) pg MCHC 34.5 (31.0-37.0) g/dL RDW 14.1 (11.5-15.5) % Plt Count 261 (150-450) k/uL MPV 6.8 Neutrophils % 83 % Lymphocytes % 9 % Monocytes % 6 % Eosinophils % 1 % Basophils % 0 % Neutrophils # 8.8 H (1.3-7.7) k/uL Lymphocytes # 0.9 L (1.0-4.8) k/uL Monocytes # 0.6 (0-1.0) k/uL Eosinophils # 0.1 (0-0.7) k/uL Basophils # 0.0 (0-0.2) k/uL PT 10.3 (9.0-12.0) sec INR 1.0 (<1.2) APTT 22.3 (22.0-30.0) sec Sodium 141 (137-145) mmol/L Potassium 3.6 (3.5-5.1) mmol/L Chloride 111 H (98-107) mmol/L Carbon Dioxide 20 L (22-30) mmol/L Anion Gap 10 mmol/L BUN 12 (7-17) mg/dL Creatinine 0.44 L (0.52-1.04) mg/dL Est GFR (CKD-EPI)AfAm >90 (>60 ml/min/1.73 sqM) Est GFR (CKD-EPI)NonAf >90 (>60 ml/min/1.73 sqM) Glucose 133 H (74-99) mg/dL Calcium 9.4 (8.4-10.2) mg/dL Total Bilirubin 1.9 H (0.2-1.3) mg/dL AST 37 H (14-36) U/L ALT 30 (4-34) U/L Alkaline Phosphatase 66 (38-126) U/L Creatine Kinase 248 H (30-135) U/L Total Protein 6.9 (6.3-8.2) g/dL Albumin 4.5 (3.5-5.0) g/dL - Radiology Data Radiology results: image reviewed (Chest x-ray shows COPD with right basilar atelectasis or scarring. Right hip and pelvis x-ray questions nondisplaced right greater trochanter fracture. Computed tomography scan does confirm minimally fracture right greater trochanter. Right adnexal cystic mass.) Disposition Clinical Impression: Fall, Trochanteric fracture of right femur Disposition: ADMITTED IP TO THIS HOSP Is patient prescribed a controlled substance at d/c from ED?: No Referrals: Pedrito Clifton MD [Primary Care Provider] - 1-2 days Decision Time: 10:37
[2021-03-14 09:03] LABS: Basophils % (A) 0 %; Eosinophils # (A) 0.1 k/uL (0-0.7); Eosinophils % (A) 1 %; HCT 38.2 % (34.0-46.0); HGB 13.2 gm/dL (11.4-16.0); Lymphocytes # (A) 0.9 k/uL (1.0-4.8); Lymphocytes % (A) 9 %; MCH 32.4 pg (25.0-35.0); MCHC 34.5 g/dL (31.0-37.0); MCV 93.8 fL (80.0-100.0); Mean Platelet Volume 6.8; Monocytes # (A) 0.6 k/uL (0-1.0); Monocytes % (A) 6 %; Neutrophils # (A) 8.8 k/uL (1.3-7.7); Neutrophils % (A) 83 %; Platelet Count 261 k/uL (150-450); RBC 4.08 m/uL (3.80-5.40); RDW 14.1 % (11.5-15.5); WBC 10.6 k/uL (3.8-10.6)
[2021-03-14 09:12] LABS: Partial Thromboplastin Time 22.3 sec (22.0-30.0); Prothrombin Time 10.3 sec (9.0-12.0)
[2021-03-14 09:15] LABS: ALT 30 U/L (4-34); AST 37 U/L (14-36); African American GFR (CKD) >90 (>60 ml/min/1.73 sqM); Albumin 4.5 g/dL (3.5-5.0); Alkaline Phosphatase 66 U/L (38-126); Anion Gap 10 mmol/L; Blood Urea Nitrogen 12 mg/dL (7-17); Calcium 9.4 mg/dL (8.4-10.2); Carbon Dioxide 20 mmol/L (22-30); Chloride 111 mmol/L (98-107); Creatine Kinase 248 U/L (30-135); Glucose 133 mg/dL (74-99); Non-African American GFR(CKD) >90 (>60 ml/min/1.73 sqM); Potassium 3.6 mmol/L (3.5-5.1); Sodium 141 mmol/L (137-145); Total Bilirubin 1.9 mg/dL (0.2-1.3); Total Protein 6.9 g/dL (6.3-8.2)
--- NOTE | 2021-03-14 09:40 | XR ---
EXAMINATION TYPE: XR chest 1V portable DATE OF EXAM: 03/14/2021 COMPARISON: NONE HISTORY: Pain TECHNIQUE: Single frontal view of the chest is obtained. FINDINGS: There is no focal air space opacity, pleural effusion, or pneumothorax seen. The cardiac silhouette size is within normal limits. The osseous structures are intact. Heart size normal. Line ar changes right lower lobe. No overt failure. Biapical pleural thickening. IMPRESSION: 1. COPD with right basilar atelectasis or scar.
--- NOTE | 2021-03-14 09:42 | XR ---
EXAMINATION TYPE: XR Hip RT and AP Pelvis DATE OF EXAM: 03/14/2021 COMPARISON: NONE HISTORY: Pain TECHNIQUE: A single AP view of the pelvis is obtained. Two views of the right hip are obtained. FINDINGS: There is mild concentric narrowing of the joint space. SI joints symmetric. There is a everardo ency along the greater trochanter. Cannot exclude a nondisplaced fracture. Question spina bifida occu lta sacrum. IMPRESSION: 1. Recommend CT scan to assess the greater trochanter of the right hip.
--- NOTE | 2021-03-14 10:25 | CT ---
EXAMINATION TYPE: CT hip RT wo con DATE OF EXAM: 03/14/2021 COMPARISON: X-ray 03/14/2021 HISTORY: Fall, right hip pain CT DLP: 365.2 mGycm Automated exposure control for dose reduction was used. FINDINGS: There is a 4.2 cm right adnexal cystic mass is atypical given the patient's demographics. Recommend c orrelation with pelvic ultrasound and CA 125. Mild arthropathy of the SI joints. There is a linear lucency through the greater trochanter extending through the right femoral neck compatible with a minimally displaced right femoral neck fracture. So ft tissue edema noted. Nonspecific sclerosis of the femoral head likely related to bone island. IMPRESSION: 1. There is a 4.2 cm right adnexal cystic mass likely ovarian. Recommend correlation with pelvic ultr asound and CA 125. 2. There is a linear acute fracture through the greater trochanter extending through the femoral neck with minimal displacement. Adjacent soft tissue edema noted.
[2021-03-14] MEDS ORDERED: NALOXONE 0.4 MG/ML 1 ML VIAL IV PRN (10:37)
[2021-03-14] MEDS ORDERED: HYDROmorphone 0.5 MG/0.5 ML SYRINGE IVP PRN (10:38)
--- NOTE | 2021-03-14 14:32 | P.HPOR ---
History of Present Illness H&P Date: 03/14/21 This is a 75 year-old female who is admitted for right hip fracture after a fall at home on 03/13/2021. Patient is seen and evaluated at bedside today. Patient states that she did not hit her head or lose consciousness. Patient states that she lives at home with her . is at bedside today and states that the patient suffers from mild dementia and hypertension. Patient states that she was unable to get up or put any weight on the right leg and presented to the emergency room on 03/14/2021. X-rays and CT reveal right intertrochanteric fracture of the right femur. CT also reveals a 4.2 cm right adnexal cystic mass likely ovarian. Patient has a past medical history significant for hypertension, asthma and a history of breast cancer . Patient denies any fever/chills, numbness, weakness, tingling, abdominal pain, shortness of breath or chest pain. Review of Systems See HPI. Past Medical History Past Medical History: Asthma, Cancer Additional Past Medical History / Comment(s): Right breast cancer 1993, History of Any Multi-Drug Resistant Organisms: None Reported Past Surgical History: Breast Surgery, Tonsillectomy Past Anesthesia/Blood Transfusion Reactions: No Reported Reaction Past Psychological History: No Psychological Hx Reported Smoking Status: Former smoker Past Alcohol Use History: Occasional Past Drug Use History: None Reported Medications and Allergies Home Medications Medication Instructions Recorded Confirmed Type Aspirin EC [Ecotrin Low Dose] 81 mg PO HS 03/14/21 03/14/21 History Metoprolol Succinate [Toprol XL] 100 mg PO DAILY 03/14/21 03/14/21 History Simvastatin [Zocor] 40 mg PO HS 03/14/21 03/14/21 History Valsartan/Hydrochlorothiazide 1 tab PO DAILY 03/14/21 03/14/21 History [Valsartan-Hctz 160-25 mg Tab] Allergies Allergy/AdvReac Type Severity Reaction Status Date / Time Sulfa (Sulfonamide Allergy Rash/Hives Verified 03/14/21 09:41 Antibiotics) Physical Examination Vital signs are stable. Patient is in no acute distress and is alert and oriented 3. Patient has limited motion of the right lower extremity due to pain. Calf is soft and nontender to palpation. Sensation intact. Neurovascular status and circulatory status are intact. Head is normocephalic and atraumatic. Exams of bilateral upper extremities and the left lower extremity are within normal limits. Results X-rays and a CT of the right hip reveal a nondisplaced right intertrochanteric f racture of the right femur. - Labs Labs: Abnormal Lab Results - Last 24 Hours (Table) 03/14/21 03/14/21 Range/Units 08:53 08:53 Neutrophils # 8.8 H (1.3-7.7) k/uL Lymphocytes # 0.9 L (1.0-4.8) k/uL Chloride 111 H (98-107) mmol/L Carbon Dioxide 20 L (22-30) mmol/L Creatinine 0.44 L (0.52-1.04) mg/dL Glucose 133 H (74-99) mg/dL Total Bilirubin 1.9 H (0.2-1.3) mg/dL AST 37 H (14-36) U/L Creatine Kinase 248 H (30-135) U/L H & H 03/14/21 Range/Units 08:53 Hgb 13.2 (11.4-16.0) gm/dL Hct 38.2 (34.0-46.0) % Coagulation 03/14/21 Range/Units 08:53 INR 1.0 (<1.2) Result Diagrams: 03/14/21 08:53 03/14/21 08:53 Assessment and Plan (1) Intertrochanteric fracture of right femur Current Visit: Yes Status: Acute Code(s): S72.141A - DISPLACED INTERTROCHANTERIC FRACTURE OF RIGHT FEMUR, INIT SNOMED Code(s): 671500805 (2) Fall Current Visit: Yes Status: Acute Code(s): W19.XXXA - UNSPECIFIED FALL, INITIAL ENCOUNTER SNOMED Code(s): 4751415 Plan: 1. Patient is to be NPO after midnight. 2. Continue pain control. 3. Appreciate input from medicine and gynecology. 4. Planning for closed reduction and intramedullary nailing of the right hip on 03/15/[address] Twin Hearn pending medical clearance and patient consent.
[2021-03-14] MEDS: HYDROmorphone 1 MG/ML 1 ML SYRINGE IVP PRN ×3 (15:10→23:38)
[2021-03-14] MEDS: SODIUM CHLORIDE 0.9% 1,000 ML IV SCH ×2 (17:50→19:42)
--- NOTE | 2021-03-14 19:10 | US ---
EXAMINATION TYPE: US pelvic complete DATE OF EXAM: 03/14/2021 COMPARISON: Same-day CT CLINICAL HISTORY: RIGHT ADNEXAL MASS ON CT SCAN. Right adnexal mass on CT scan per order. . TECHNIQUE: Transabdominal (TA). Transabdominal sonographic images of the pelvis were acquired. Tra nsvaginal not to be performed per RN. Patient will be unable to keep proper position for exam due to injury. Date of LMP: Unknown EXAM MEASUREMENTS: Uterus: 5.7 x 4.4 x 2.1 cm Endometrial Stripe: 0.47 cm Right Ovary: Area seen in right adnexa could resemble right ovary?: 6.0 x 4.7 x 3.1 cm. Left Ovary: Not visualized. 1. Uterus: Anteverted 2. Endometrium: Measures 0.47 cm. 3. Right Ovary: Area mentioned in right adnexa could resemble right ovary. 4. Left Ovary: Not visualized. 5. Bilateral Adnexa: Anechoic area with hypoechoic border seen measurin.0 x 4.7 x 3.1 cm. Anecho ic area measures 4.4 x 3.6 x 2.7 cm. There appears to be arterial and venous waveform along periphery . Arterial waveform appears to be high resistant. 6. Posterior cul-de-sac: Hypoechoic-anechoic area seen: 2.5 x 2.3 x 0.7 cm (probable fluid). IMPRESSION: 6 cm right adnexa anechoic structure, demonstrates vascular flow and features suggestive of ovary on ultrasound. However size is enlarged for age and furthermore CT features are atypical for ovary and m ore consistent with cystic lesion. Finding most likely represents a right ovarian cystic lesion which is suboptimally evaluated by ultrasound due to large size. Recommend MRI for further characterizatio n and/or FUNERAL DIRECTOR AND EMBALMER consultation.
[2021-03-14] MEDS ORDERED: LORazepam 2 MG/ML INJ IV PRN (19:49)
[2021-03-14] MEDS: ATORVASTATIN 20 MG TAB PO SCH (20:04)
[2021-03-14] MEDS ORDERED: cloNIDine HCL 0.1 MG TAB PO PRN (20:23)
[2021-03-14] MEDS ORDERED: HYDROcodone/APAP 5-325MG 1 EACH TAB PO PRN (20:24)
--- NOTE | 2021-03-14 22:17 | CONS ---
CONSULTATION REASON FOR CONSULTATION: Regarding asthma and multiple medical issues, requested by Orthopedic Surgery. HISTORY OF PRESENT ILLNESS: This 75 -year-old woman with a past medical history of asthma, history of right breast cancer, being followed by Dr. Pedrito Clifton in the outpatient setting, was admitted to [facility] with features of right hip fracture with greater trochanter fracture extending to the femoral neck with minimal displacement. The patient also found to have 4.2 cm right adnexal cystic mass, likely ovarian also. There is no history of fever, rigors, chest pain or palpitations. Patient is slightly confused after pain medication currently. The chest x-ray which I reviewed personally showed some possibly maybe atelectasis and COPD. The pelvis ultrasound which was done today showed most likely right ovarian cystic lesion. PAST MEDICAL HISTORY: History of asthma, history of right breast cancer, history of breast surgery, tonsillectomy. MEDICATIONS: simvastatin, metoprolol, aspirin. Doses are reviewed. ALLERGIES: SULFA. FAMILY HISTORY: No history of heart disease or strokes in the family. SOCIAL HISTORY: Previous history of smoking. Occasional alcohol intake. REVIEW OF SYSTEMS: ENT: No diminished vision. No diminished hearing. CARDIOVASCULAR: No angina. RESPIRATION: No cough. GI no nausea. as mentioned earlier. NERVOUS SYSTEM: No numbness or weakness. ALLERGY/IMMUNOLOGY: No asthma or hayfever. MUSCULOSKELETAL: As mentioned earlier. HEMATOLOGY/ONCOLOGY: No history of anemia. ENDOCRINE: No history of diabetes or hypothyroidism. CONSTITUTIONAL: As mentioned earlier. DERMATOLOGY: Negative. RHEUMATOLOGY negative. PSYCHIATRY as mentioned earlier. PHYSICAL EXAMINATION: Alert and oriented x3. Pulse is 113, blood pressure 196/107, respiration 21, temperature 97.6. Pulse ox 100 percent on room air. HEENT: Conjunctivae normal. Oral mucosa moist. NECK: No jugular venous distention. No carotid bruit. No lymph node enlargement. CARDIOVASCULAR system: S1, S2 muffled. RESPIRATION: Breath sounds diminished in the bases. No rhonchi. No crackles. ABDOMEN: Soft, nontender. No mass palpable. LEGS: Status post fracture. NERVOUS SYSTEM: No focal deficits. SKIN: No ulcers, rashes or bleeding. JOINTS as mentioned earlier, normal except right hip joint. LABS: CBC within normal limits and sodium 141, potassium 3.6, and total bilirubin is 1.9. AST is 37 and creatinine kinase is 248. ASSESSMENT: 1. Fall and possible right hip fracture. 2. Hypertension. 3. Elevated total bilirubin and AST. 4. History of asthma. 5. History of right breast cancer in 1993. 6. Possible right ovarian cyst. 7. Remote history of nicotine dependence. 8. Obesity with body mass of 54.9. 9. FULL CODE. RECOMMENDATIONS AND DISCUSSION: This 75-year-old woman who presented with multiple complex medical issues, we will monitor the patient closely, continue the current medications, management. Resume the home medications. Otherwise, I would recommend hypertensive medications also. The patient is stable at this time. The patient will be cleared for surgery and recommend DVT prophylaxis and also recommend evaluation of the right ovarian cyst in the outpatient setting, possibly with SYSTEM VALIDATION ENGINEER. Otherwise, we will follow the patient closely with you. Thank you for letting us participate in the care of this patient. Respiration thank patient. MAE / RASHIDA: [id number] /
[2021-03-14] MEDS: cloNIDine HCL 0.1 MG TAB PO SCH ×2 (23:21)
[2021-03-15] MEDS: SODIUM CHLORIDE 0.9% 1,000 ML IV SCH ×4 (03:59→19:57)
[2021-03-15] MEDS: HYDROmorphone 1 MG/ML 1 ML SYRINGE IVP PRN ×2 (04:33→11:11)
[2021-03-15] MEDS: METOPROLOL SUCCINATE (ER) 100 MG TAB.ER.24H PO SCH (08:35)
[2021-03-15] MEDS: PANTOPRAZOLE 40 MG/10 ML VIAL IVP SCH (08:35)
[2021-03-15] MEDS: hydroCHLOROthiazide 25 MG TAB PO SCH (08:37)
[2021-03-15] MEDS: cloNIDine HCL 0.1 MG TAB PO SCH ×5 (08:37→21:06)
[2021-03-15] MEDS: VALSARTAN 160 MG TAB PO SCH ×2 (08:37→10:32)
--- NOTE | 2021-03-15 10:16 | P.CON ---
Consult Note - . Consult date: 03/15/21 Assessment/Plan:: This is a 75-year-old white female 4 para 4004 who presented yesterday with an acute fall at home, and a fractured right hip. CT imaging revealed a mass in the pelvis. Ultrasound further defines uterus 5.7 x 4.4 x 2.1 cm with a 47 mm stripe. The right ovary contains a 4.4 x 3.6 x 2.7 cm cyst. There is fluid in the cul-de-sac. Left adnexa is not well visualized. 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 Past medical history is significant for asthma, chronic hypertension, and right breast cancer in [address]. Dr. Pedrito Clifton primary care physician. Past surgical history tonsillectomy, right breast surgery in the past. Current medications metoprolol 100 mg daily, Zocor 40 mg daily, valsartan hydrochlorothiazide daily, baby aspirin daily. Social history patient is , she is a former smoker, she denies alcohol or drug use. Family history is negative for cancers of the ovaries, cervix, colon, breast, uterus. STITCH WELDER history significant for 4 normal spontaneous vaginal deliveries, all uncomplicated. On exam patient is 5 foot 3 inches, 140 kg, blood pressure 182/95, pulse 104, temperature 97.6. HEENT examination is negative, no thyromegaly. Chest is clear in all [place] anteriorly and posteriorly. Cardiac exam reveals regular rate and rhythm with no murmur click or rub. Breasts are bilaterally symmetric to inspection with no obvious skin dimpling, nipple discharge, axilla adenopathy. Abdomen is softly distended, nontender. No CVA tenderness. The right hip is exquisitely painful, the right knee is also quite edematous. Good peripheral pulses bilaterally. I discussed with the patient a pelvic ex amination which she is declining secondary to immobility of the right hip and acute pain secondary to recent trauma. WBCs 10.6, platelets 261,000, hemoglobin 13.2, hematocrit 38.2. Impression: Acute right hip fracture, right knee edema. Scheduled for orthopedic surgery this morning with Dr. Hearn. Incidental finding of a 4.4 cm right adnexal cyst, asymptomatic at this time. No family history of ovarian cancer. Plan: I have ordered an ova-1 test that is a send out lab to discern risk of ovarian cancer. I have discussed with the patient follow-up in the office in 4 weeks after she has healed from the right hip surgery. At that time I will repeat pelvic ultrasound in the office, evaluate blood test, and plan further as appropriate. Thank you for the consultation. Patient understands and agrees with our plan as outlined.
--- NOTE | 2021-03-15 11:38 | XR ---
EXAMINATION TYPE: XR knee complete RT DATE OF EXAM: 03/15/2021 CLINICAL HISTORY: pain TECHNIQUE: Three views of the right knee are obtained. COMPARISON: None. FINDINGS: There is no acute fracture/dislocation. The tri-compartment joint spaces appear moderatel y narrowed. The overlying soft tissue appears unremarkable. There is a moderate-sized suprapatellar j oint effusion. IMPRESSION: There is no acute fracture or dislocation.ICD 10 NO FRACTURE, INITIAL EVALUATION
[2021-03-15 12:22] LABS: African American GFR (CKD) 108.2 (60.0-200.0); Albumin 4.1 g/dL (3.80-4.90); Albumin/Globulin Ratio 1.95 (1.60-3.17); Calcium 8.7 mg/dL (8.7-10.3); Globulin 2.1 g/dL (1.6-3.3); Non-African American GFR(CKD) 93.4 (60.0-200.0); Potassium 3.9 mmol/L (3.5-5.5); Total Bilirubin 2.8 mg/dL (0.3-1.2); Total Protein 6.2 g/dL (6.2-8.2)
[2021-03-15 12:25] LABS: Appearance,Urine Clear (Clear); Bilirubin,Urine Negative (Negative); Blood,Urine Small (Negative); Color,Urine Yellow; Glucose,Urine (UA) Trace (Negative); Ketones,Urine 2+ (Negative); Leukocyte Esterase,Urine Moderate (Negative); Mucus,Urine Occasional /hpf; Nitrite,Urine Negative (Negative); Protein,Urine Negative (Negative); RBC,Urine 5 /hpf (0-5); Specific Gravity,Urine 1.014 (1.001-1.035); Urobilinogen,Urine <2.0 mg/dL (<2.0); WBC,Urine 19 /hpf (0-5)
[2021-03-15 12:57] LABS: Basophils # (A) 0.03 X 10*3/uL (0.00-0.10); Basophils % (A) 0.3 %; Eosinophils # (A) 0.03 X 10*3/uL (0.04-0.35); Eosinophils % (A) 0.3 %; HCT 40.8 % (37.2-46.3); HGB 13.2 g/dL (12.0-15.0); Lymphocytes # (A) 1.01 X 10*3/uL (0.90-5.00); Lymphocytes % (A) 9.5 %; MCH 31.6 pg (27.0-32.0); MCHC 32.4 g/dL (32.0-37.0); MCV 97.6 fL (80.0-97.0); Monocytes # (A) 0.96 X 10*3/uL (0.20-1.00); Neutrophils # (A) 8.54 X 10*3/uL (1.80-7.70); Neutrophils % (A) 80.4 %; Platelet Count 238 X 10*3/uL (140-440); RBC 4.18 X 10*6/uL (4.10-5.20); RDW 14.5 % (11.5-14.5); WBC 10.62 X 10*3/uL (4.50-10.00)
[2021-03-15] MEDS ORDERED: LACTATED RINGERS 1,000 ML IV ONE (14:36)
[2021-03-15] MEDS: FOLIC ACID 1 MG TAB PO SCH (14:36)
[2021-03-15] MEDS: THIAMINE 100 MG TAB PO SCH (14:36)
[2021-03-15] MEDS: MULTIVITAMINS, THERA 1 EACH TAB PO SCH (14:36)
[2021-03-15] MEDS ORDERED: ONDANSETRON 4 MG/2 ML VIAL ONE (14:37)
[2021-03-15] MEDS ORDERED: DEXAMETHASONE SOD PHOSPHATE 4 MG/ML 1 ML VIAL IVP ONE (14:40)
[2021-03-15] MEDS ORDERED: ONDANSETRON 4 MG/2 ML VIAL IVP ONE (14:40)
[2021-03-15] MEDS ORDERED: HYDROmorphone 0.2 MG/1 ML SYRINGE IVP PRN (14:58)
[2021-03-15] MEDS ORDERED: HYDROmorphone 0.5 MG/0.5 ML SYRINGE IVP PRN ×2 (14:58)
[2021-03-15] MEDS ORDERED: MAGNESIUM HYDROXIDE 2,400 MG/10 ML CUP PO PRN (14:58)
[2021-03-15] MEDS ORDERED: NALOXONE 0.4 MG/ML 1 ML VIAL IV PRN (14:58)
[2021-03-15] MEDS ORDERED: HYDROcodone/APAP 7.5-325MG 1 EACH TAB PO PRN (15:02)
--- NOTE | 2021-03-15 15:09 | P.PN ---
Progress Note - Text Progress Note Date: 03/15/21 Patient developed pain in the right knee today and x-rays were completed. X-rays of the right knee are reviewed and are negative for any fracture or dislocation. Patient is scheduled for closed reduction and IM nailing of the right hip later today.
[2021-03-15] MEDS ORDERED: PHENYLEPHRINE-0.9% NACL SYG 1,000 MCG/10 ML SYRINGE ONE (15:15)
[2021-03-15] MEDS ORDERED: diphenhydrAMINE 50 MG/ML 1 ML VIAL ONE (15:15)
[2021-03-15] MEDS ORDERED: KETAMINE 10 MG/ML 20 ML VIAL ONE (15:15)
[2021-03-15] MEDS ORDERED: fentaNYL (PF) 50 MCG/ML 2 ML AMP ONE (15:15)
[2021-03-15] MEDS ORDERED: ePHEDrine SULFATE/0.9% NACL/PF 50 MG/5 ML SYRINGE IV ONE (15:15)
[2021-03-15] MEDS ORDERED: MIDAZOLAM 2 MG/2 ML VIAL ONE (15:15)
--- NOTE | 2021-03-15 16:09 | P.OP ---
Date of Procedure: 03/15/21 Preoperative Diagnosis: Intratrochanteric fracture right hip Postoperative Diagnosis: Intratrochanteric fracture right hip Procedure(s) Performed: Closed reduction and intramedullary nailing of the right hip Implants: [employer] Tri[employer] Intertan nail 125, 11.5 mm x 18 cm. [employer] Intertan integrated-interlocking lag screw, 90 mm lag screw, 90 mm compression screw. [employer] L-P screw, 5.0 mm x 32.5 mm. Anesthesia: spinal Surgeon: [employer] Audit Manager #1: Tona Urbina Estimated Blood Loss (ml): 50 Pathology: none sent Condition: stable Disposition: PACU Indications for Procedure: This is a 75-year-old female sustained a ground-level fall and a intertrochanteric fracture of her right hip. After discussing the surgical nonsurgical treatment options with her family at length, I recommended a close reduction and intramedullary rodding of the right hip. Informed consent was obtained. Operative Findings: The operative findings are consistent with intertrochanteric fracture of the right hip Description of Procedure: The patient was seen in the preoperative area, consent was reviewed, and the operative site was marked with a skin marker. The surgical procedure was discussed at length with both the patient and the family at the bedside. All questions were answered to the best of my ability. The patient was brought to the operating room and placed on the fracture table. Anesthesia was administered by the anesthesia department. 2 g of Ancef were administered intravenously. The patient was placed supine on the fracture table with the fractured extremity in traction boot. The other extremity was placed in a well leg streeter and the bony prominences were well padded. A universal timeout was then performed which confirmed the patient's name, surgical site, ALLERGIES, and consent. Fracture reduction was performed with a traction and abduction maneuver which was confirmed with fluoroscopy, both AP and lateral views.. After reduction was performed, the extremity was then prepped with ChloraPrep solution and draped in the usual sterile fashion. Utilizing fluoroscopy to identify the tip of the greater trochanter, a 3 cm longitudinal incision was made just proximal to the greater trochanter. Incision was carried through the fascia to the tip of the greater trochanter. Utilizing a curved awl, the entry point was created at the tip of the greater trochanter and centralized in the AP and lateral planes. These locations were confirmed by fluoroscopy. A guidewire was then inserted down the medullary canal. Sequentially reaming of the femur was performed to 13 mm distally and 17 mm proximally with the channel reamer. After reaming, appropriate size nail was inserted over the guidewire. The nail was inserted to the appropriate depth and the guidewire was removed. Placement of the pennie was confirmed with both AP and lateral fluoroscopic views. The lag screw drill sleeve was placed in the jig and a small skin incision was made on the lateral aspect of the leg and the lag screw drill sleeve was locked into the guide. The 3.2 mm guide pin sleeve was inserted through the lag screw drill sleeve down to bone. A 3.2 mm distally threaded guidewire was inserted through the guide pin sleeve. The guidewire was inserted in the desired position in the femoral head, both anterior and posterior. The lag screw length cage was inserted over the guidepin to the back of the lag screw drill sleeve. Lag screw length was then measured from the cage. Next, the 7.0 mm compression screw starter drill was inserted in the lag screw drill sleeve beneath the guidepin. The compression screw starter drill was advanced under power until it abutted the back and of the lag screw drill sleeve. The 7.0 mm compression screw drill was inserted through the lag screw drill sleeve into the hole created by the compression screw starter drill. This was advanced under fluoroscopy to a depth 5 mm less and the measurement taken for the guidepin. The compression screw drill was removed and the antirotation bar was inserted into the same hole. The 3.2 mm guide pin sleeve was then remov ed from the drill guide. The lag screw drill was then inserted to a depth that was measured by the lag screw gauge. This was done under fluoroscopy. The lag screw was inserted over the guidewire to the appropriate depth using fluoroscopy. Traction was then released. The antirotation bar was then removed and the compression screw was advanced through the lag screw drill sleeve beneath the lag screw. This was advanced to the appropriate compression was achieved. The proximal drill guide was then removed and the distal drill guide was then inserted in the jig. Skin incision was made down to bone and the distal drill guide was then placed. Distal hole was then drilled with a 4.0 mm drill and measured to the appropriate depth. Distal screw was then placed. The entire assembly was then removed and final fluoroscopic x-rays were obtained. The wounds were then irrigated copiously with saline solution. Fascia was closed with 0-Vicryl. Subcutaneous tissues were closed with 2-0 Vicryl and the skin was closed with va. Sterile dressings were applied. The patient was transported to the recovery room in stable condition. The audiology assistant IRENE Zaidi was required due the complexity of surgery the need for skilled surgical nurse practitioner for positioning draping retraction and fracture reduction.
[2021-03-15] MEDS: LACTATED RINGERS 1,000 ML IV SCH (16:43)
--- NOTE | 2021-03-15 17:07 | XR ---
EXAMINATION TYPE: XR Hip Limited RT DATE OF EXAM: 03/15/2021 CLINICAL HISTORY: Postoperative evaluation TECHNIQUE: Single portable view of the right hip was submitted. FINDINGS: Intramedullary pennie and dynamic compression screw proximal right femur. Alignment is anatomi c. Postsurgical soft tissue changes are evident. IMPRESSION: Satisfactory postoperative alignment
[2021-03-15] MEDS: ATORVASTATIN 20 MG TAB PO SCH ×3 (20:44→21:06)
[2021-03-15] MEDS: SENNOSIDES-DOCUSATE SODIUM 1 EACH TAB PO SCH ×2 (20:45→21:06)
[2021-03-15] MEDS: HYDROcodone/APAP 7.5-325MG 1 EACH TAB PO PRN ×2 (20:45→22:56)
--- NOTE | 2021-03-15 20:58 | P.PN ---
Subjective 75-year-old female was admitted for right hip fracture, intertrochanteric fracture patient will undergo surgical intervention today when I evaluated the patient patient just received Dilaudid and was drowsy and sleepy. Review of systems: Unable to obtain due to her clinical condition All inpatient medications were reviewed and appropriate changes in these medications as dictated in the interval history and assessment and plan. PHYSICAL EXAMINATION: GENERAL: Drowsy and sleepy, not in any acute distress. Well developed, well nourished. HEENT: Pupils are round and equally reacting to light. EOMI. No scleral icterus. No conjunctival pallor. Normocephalic, atraumatic. No pharyngeal erythema. No thyromegaly. CARDIOVASCULAR: S1 and S2 present. No murmurs, rubs, or gallops. PULMONARY: Chest is clear to auscultation, no wheezing or crackles. ABDOMEN: Soft, nontender, nondistended, normoactive bowel sounds. No palpable organomegaly. MUSCULOSKELETAL: Deferred to orthopedic surgery EXTREMITIES: No cyanosis, clubbing, or pedal edema. NEUROLOGICAL: Gross neurological examination did not reveal any focal deficits. SKIN: No rashes. Assessment and plan Mechanical fall with right hip fracture: Patient is low operative risk for i ntramedullary nailing. -Hypertension continue with present blood pressure medication patient. She is elevated although expected to drop post surgery will continue to monitor blood pressures -Asthma without any acute exacerbation -History of breast cancer in remission -Right-sided ovarian cyst no further intervention at this time -Obesity Mildly elevated liver enzymes no further intervention at this time Objective - Vital Signs Vital signs: Vital Signs Temp 97.4 F L 03/15/21 17:38 Pulse 86 03/15/21 19:38 Resp 16 03/15/21 19:15 BP 164/79 03/15/21 19:38 Pulse Ox 96 03/15/21 19:08 Intake & Output 03/15/21 03/15/21 03/16/21 06:59 18:59 06:59 Intake Total 1600 800 800 Output Total 2200 1000 350 Balance -600 -200 450 Intake: IV 800 Intake, IV Titration 1200 Amount Sodium Chloride 0.9% 1, 1200 000 ml @ 100 mls/hr IV . Q10H STA Rx#:[id number] Oral 400 800 Output: Urine 2200 950 350 Uretheral (Frias) 1200 Estimated Blood Loss 50 Other: Voiding Method Indwelling Catheter Indwelling Catheter Indwelling Catheter # Voids 1,700 - Labs CBC & Chem 7: 03/15/21 06:44 03/15/21 06:44 Labs: Abnormal Lab Results - Last 24 Hours (Table) 03/15/21 03/15/21 03/15/21 Range/Units 06:44 06:44 11:55 WBC 10.62 H (4.50-10.00) X 10*3/uL MCV 97.6 H (80.0-97.0) fL Immature Gran # 0.05 H (0.00-0.04) X 10*3/uL Neutrophils # 8.54 H (1.80-7.70) X 10*3/uL Eosinophils # 0.03 L (0.04-0.35) X 10*3/uL BUN 6.0 L (9.0-27.0) mg/dL Creatinine 0.5 L (0.6-1.5) mg/dL Glucose 138 H (70-110) mg/dL Total Bilirubin 2.8 H (0.3-1.2) mg/dL AST 45 H (13-35) U/L Urine Glucose (UA) Trace H (Negative) Urine Ketones 2+ H (Negative) Urine Blood Small H (Negative) Ur Leukocyte Esterase Moderate H (Negative) Urine WBC 19 H (0-5) /hpf Urine Mucus Occasional H (None) /hpf
[2021-03-15 22:52] LABS: Basophils # (A) 0.01 X 10*3/uL (0.00-0.10); Basophils % (A) 0.1 %; Eosinophils # (A) 0 X 10*3/uL (0.04-0.35); Eosinophils % (A) 0 %; HCT 40.9 % (37.2-46.3); HGB 13.3 g/dL (12.0-15.0); Lymphocytes # (A) 0.37 X 10*3/uL (0.90-5.00); Lymphocytes % (A) 3.1 %; MCH 32.1 pg (27.0-32.0); MCHC 32.5 g/dL (32.0-37.0); MCV 98.8 fL (80.0-97.0); Mean Platelet Volume 9.9 fL (9.5-12.2); Monocytes # (A) 0.67 X 10*3/uL (0.20-1.00); Monocytes % (A) 5.6 %; Neutrophils # (A) 10.85 X 10*3/uL (1.80-7.70); Neutrophils % (A) 90.4 %; Platelet Count 207 X 10*3/uL (140-440); RBC 4.14 X 10*6/uL (4.10-5.20); RDW 14.3 % (11.5-14.5); WBC 11.99 X 10*3/uL (4.50-10.00)
[2021-03-16] MEDS: SODIUM CHLORIDE 0.9% 1,000 ML IV SCH ×4 (04:48→22:21)
[2021-03-16] MEDS: cloNIDine HCL 0.1 MG TAB PO SCH ×3 (07:58→22:21)
[2021-03-16] MEDS: PANTOPRAZOLE 40 MG/10 ML VIAL IVP SCH (07:58)
[2021-03-16] MEDS: METOPROLOL SUCCINATE (ER) 100 MG TAB.ER.24H PO SCH (07:58)
[2021-03-16] MEDS: APIXABAN 2.5 MG TABLET PO SCH ×2 (07:58→22:20)
[2021-03-16] MEDS: VALSARTAN 160 MG TAB PO SCH (07:59)
[2021-03-16] MEDS: hydroCHLOROthiazide 25 MG TAB PO SCH (07:59)
--- NOTE | 2021-03-16 08:16 | P.PN ---
Subjective Progress Note Date: 03/16/21 Principal diagnosis: Intertrochanteric fracture right hip. Status post close reduction and insertion of intertrochanteric nail right hip. this is a 75-year-old female who is status post close reduction with insertion of intertrochanteric nail of the right hip. Today is postoperative day #1. She is stable from an orthopedic standpoint. She has no new complaints or concerns. She does have some confusion this morning. Labs and vitals are stable. Objective - Vital Signs Vital signs: Vital Signs Temp 98.1 F 03/16/21 07:51 Pulse 96 03/16/21 07:51 Resp 17 03/16/21 07:51 BP 123/67 03/16/21 07:51 Pulse Ox 97 03/16/21 07:51 Intake & Output 03/15/21 03/16/21 03/16/21 18:59 06:59 18:59 Intake Total 800 1400 Output Total 1000 1350 Balance -200 50 Intake: IV 800 Oral 1400 Output: Urine 950 1350 Estimated Blood Loss 50 Other: Voiding Method Indwelling Catheter Indwelling Catheter # Voids 2 - Exam this is a pleasant 75-year-old female in no acute distress. She is alert at this time. She does have some confusion. Exam of the right hip reveals that her incisions look good. [place] are intact. She has full foot and ankle motion without difficulty or pain. pain with palpation. She does have a +2 knee effusion with no erythema or ecchymosis. Neurovascular status to the lower extremity is intact. - Labs CBC & Chem 7: 03/15/21 18:30 03/15/21 06:44 Labs: Abnormal Lab Results - Last 24 Hours (Table) 03/15/21 03/15/21 03/15/21 Range/Units 06:44 06:44 11:55 WBC 10.62 H (4.50-10.00) X 10*3/uL MCV 97.6 H (80.0-97.0) fL MCH (27.0-32.0) pg Immature Gran # 0.05 H (0.00-0.04) X 10*3/uL Neutrophils # 8.54 H (1.80-7.70) X 10*3/uL Lymphocytes # (0.90-5.00) X 10*3/uL Eosinophils # 0.03 L (0.04-0.35) X 10*3/uL BUN 6.0 L (9.0-27.0) mg/dL Creatinine 0.5 L (0.6-1.5) mg/dL Glucose 138 H (70-110) mg/dL Total Bilirubin 2.8 H (0.3-1.2) mg/dL AST 45 H (13-35) U/L Urine Glucose (UA) Trace H (Negative) Urine Ketones 2+ H (Negative) Urine Blood Small H (Negative) Ur Leukocyte Esterase Moderate H (Negative) Urine WBC 19 H (0-5) /hpf Urine Mucus Occasional H (None) /hpf 03/15/ Range/Units 18:30 WBC 11.99 H (4.50-10.00) X 10*3/uL MCV 98.8 H (80.0-97.0) fL MCH 32.1 H (27.0-32.0) pg Immature Gran # 0.09 H (0.00-0.04) X 10*3/uL Neutrophils # 10.85 H (1.80-7.70) X 10*3/uL Lymphocytes # 0.37 L (0.90-5.00) X 10*3/uL Eosinophils # 0 L (0.04-0.35) X 10*3/uL BUN (9.0-27.0) mg/dL Creatinine (0.6-1.5) mg/dL Glucose (70-110) mg/dL Total Bilirubin (0.3-1.2) mg/dL AST (13-35) U/L Urine Glucose (UA) (Negative) Urine Ketones (Negative) Urine Blood (Negative) Ur Leukocyte Esterase (Negative) Urine WBC (0-5) /hpf Urine Mucus (None) /hpf Assessment and Plan (1) Fall Current Visit: Yes Status: Acute Code(s): W19.XXXA - UNSPECIFIED FALL, INITIAL ENCOUNTER SNOMED Code(s): 3276681 (2) Intertrochanteric fracture of right femur Current Visit: Yes Status: Acute Code(s): S72.141A - DISPLACED INTERTROCHANTERIC FRACTURE OF RIGHT FEMUR, INIT SNOMED Code(s): 322235114 Plan: the clinical findings are discussed with the patient and nursing staff. She may begin physical therapy today. In his for inpatient rehab at discharge, most likely this week.
--- NOTE | 2021-03-16 08:43 | FL ---
EXAMINATION TYPE: FL guidance operating room DATE OF EXAM: 03/15/2021 HISTORY: Fluoroscopy time 25 seconds of fluoroscopy provided. IMPRESSION: 1. Fluoroscopy time.
--- NOTE | 2021-03-16 08:45 | XR ---
EXAMINATION TYPE: XR Hip Limited RT DATE OF EXAM: 03/15/2021 COMPARISON: NONE HISTORY: Postop TECHNIQUE: One view submitted. FINDINGS: There is postsurgical change in near anatomic alignment. There is soft tissue edema and emphysema. IMPRESSION: 1. Postoperative change. Appears in near-anatomic alignment.
[2021-03-16] MEDS: THIAMINE 100 MG TAB PO SCH (13:30)
[2021-03-16] MEDS: FOLIC ACID 1 MG TAB PO SCH (13:30)
[2021-03-16] MEDS: MULTIVITAMINS, THERA 1 EACH TAB PO SCH (13:30)
[2021-03-16] MEDS ORDERED: KETOROLAC 15 MG/ML 1 ML VIAL IVP PRN (15:26)
--- NOTE | 2021-03-16 15:28 | P.PN ---
Subjective 75-year-old female was admitted for right hip fracture, intertrochanteric fracture patient will undergo surgical intervention today when I evaluated the patient patient just received Dilaudid and was drowsy and sleepy. Review of systems: Unable to obtain due to her clinical condition 03/16/2021 Patient apparently has history of dementia patient is significantly confused at this time. Avoid opiates, anticholinergic medications most of the opiates were discontinued will use Tylenol and a very low dose of Milo for pain if needed. Toradol can be considered as well with GI prophylaxis and close monitoring of kidney function. All inpatient medications were reviewed and appropriate changes in these medications as dictated in the interval history and assessment and plan. PHYSICAL EXAMINATION: GENERAL: Significantly confused Well developed, well nourished. HEENT: Pupils are round and equally reacting to light. EOMI. No scleral icterus. No conjunctival pallor. Normocephalic, atraumatic. No pharyngeal erythema. No thyromegaly. CARDIOVASCULAR: S1 and S2 present. No murmurs, rubs, or gallops. PULMONARY: Chest is clear to auscultation, no wheezing or crackles. ABDOMEN: Soft, nontender, nondistended, normoactive bowel sounds. No palpable organomegaly. MUSCULOSKELETAL: Deferred to orthopedic surgery EXTREMITIES: No cyanosis, clubbing, or pedal edema. NEUROLOGICAL: Gross neurological examination did not reveal any focal deficits. SKIN: No rashes. Assessment and plan Mechanical fall with right hip fracture: Patient is low operative risk for intramedullary nailing. -Altered mental status probably set toxic encephalopathy from pain medications these will be discontinued and pain management as mentioned above -Hypertension continue with present blood pressure medication except for hydrochlorothiazid -Asthma without any acute exacerbation -History of breast cancer in remission -Right-sided ovarian cyst no further intervention at this time -Obesity Mildly elevated liver enzymes no further intervention at this time Objective - Vital Signs Vital signs: Vital Signs Temp 98.2 F 03/16/21 14:00 Pulse 84 03/16/21 14:00 Resp 16 03/16/21 14:00 BP 132/68 03/16/21 14:00 Pulse Ox 98 03/16/21 14:00 Intake & Output 03/15/21 03/16/21 03/16/21 18:59 06:59 18:59 Intake Total 800 1400 Output Total 1000 1350 Balance -200 50 Intake: IV 800 Oral 1400 Output: Urine 950 1350 Estimated Blood Loss 50 Other: Voiding Method Indwelling Catheter Indwelling Catheter # Voids 2 - Labs CBC & Chem 7: 03/15/21 18:30 03/15/21 06:44 Labs: Abnormal Lab Results - Last 24 Hours (Table) 03/15/21 Range/Units 18:30 WBC 11.99 H (4.50-10.00) X 10*3/uL MCV 98.8 H (80.0-97.0) fL MCH 32.1 H (27.0-32.0) pg Immature Gran # 0.09 H (0.00-0.04) X 10*3/uL Neutrophils # 10.85 H (1.80-7.70) X 10*3/uL Lymphocytes # 0.37 L (0.90-5.00) X 10*3/uL Eosinophils # 0 L (0.04-0.35) X 10*3/uL
[2021-03-16] MEDS: LACTATED RINGERS 1,000 ML IV SCH (16:21)
[2021-03-16] MEDS: ATORVASTATIN 20 MG TAB PO SCH (22:20)
[2021-03-16] MEDS: SENNOSIDES-DOCUSATE SODIUM 1 EACH TAB PO SCH (22:20)
[2021-03-17] MEDS: APIXABAN 2.5 MG TABLET PO SCH ×2 (08:37→20:21)
[2021-03-17] MEDS: METOPROLOL SUCCINATE (ER) 100 MG TAB.ER.24H PO SCH (08:37)
[2021-03-17] MEDS: cloNIDine HCL 0.1 MG TAB PO SCH ×3 (08:37→23:09)
[2021-03-17] MEDS: PANTOPRAZOLE 40 MG/10 ML VIAL IVP SCH (08:38)
[2021-03-17] MEDS: VALSARTAN 160 MG TAB PO SCH (08:38)
[2021-03-17 09:47] LABS: HCT 32.3 % (37.2-46.3); HGB 10.7 g/dL (12.0-15.0); MCH 32.1 pg (27.0-32.0); MCHC 33.1 g/dL (32.0-37.0); Mean Platelet Volume 10.2 fL (9.5-12.2); Platelet Count 244 X 10*3/uL (140-440); RBC 3.33 X 10*6/uL (4.10-5.20); WBC 7.61 X 10*3/uL (4.50-10.00)
--- NOTE | 2021-03-17 10:01 | P.PN ---
Subjective Progress Note Date: 03/17/21 This is a 75-year-old female who is status post closed reduction and intramedullary nailing of the right hip. This is postoperative day #2 and patient is seen and evaluated at bedside today. Patient states that her pain is well controlled and she denies any new complaints today. Objective - Vital Signs Vital signs: Vital Signs Temp 98.2 F 03/17/21 08:00 Pulse 84 03/17/21 08:00 Resp 16 03/17/21 08:00 BP 154/62 03/17/21 08:00 Pulse Ox 96 03/17/21 08:00 Intake & Output 03/16/21 03/17/21 03/17/21 18:59 06:59 18:59 Output Total 400 Balance -400 Output: Urine 400 Other: Voiding Method Bedside Commode Indwelling Catheter # Voids 2 - Exam Patient is slightly confused this morning. Vital signs are stable. Patient is in no acute distress and is alert and oriented 3. Calf is soft and nontender to palpation. Incision is clean, dry, and intact. Patient has full foot and ankle motion without pain or difficulty. Sensation intact. Neurovascular status and circulatory status are intact. - Labs CBC & Chem 7: 03/17/21 06:29 03/15/21 06:44 Labs: Abnormal Lab Results - Last 24 Hours (Table) 03/17/21 Range/Units 06:29 RBC 3.33 L (4.10-5.20) X 10*6/uL Hgb 10.7 L (12.0-15.0) g/dL Hct 32.3 L (37.2-46.3) % MCH 32.1 H (27.0-32.0) pg Assessment and Plan (1) Intertrochanteric fracture of right femur Current Visit: Yes Status: Acute Code(s): S72.141A - DISPLACED INTERTROC HANTERIC FRACTURE OF RIGHT FEMUR, INIT SNOMED Code(s): 020557994 (2) Fall Current Visit: Yes Status: Acute Code(s): W19.XXXA - UNSPECIFIED FALL, INITIAL ENCOUNTER SNOMED Code(s): 2538437 Plan: Continue routine postop care and pain control. Continue anticoagulation with Eliquis. Weightbearing as tolerated with a walker. Daily dressing changes. Appreciate input from medicine. Anticipate discharge home with homecare or to [facility] in the next 24-48 hours depending how the patient does with physical therapy.
[2021-03-17] MEDS: ACETAMINOPHEN TAB 325 MG TAB PO PRN (10:25)
--- NOTE | 2021-03-17 12:06 | XR ---
EXAMINATION TYPE: XR chest 1V portable DATE OF EXAM: 03/17/2021 Comparison: 03/06/2021 Clinical History: 75-year-old female shortness of breath Findings: The cardiomediastinal silhouette, aorta, and pulmonary vasculature are within normal limits. Patient is obliqued towards the right. Mild hyperinflation. No consolidation or pleural effusion. Impression: There may be some underlying emphysema. No acute cardiopulmonary process.
[2021-03-17] MEDS: THIAMINE 100 MG TAB PO SCH (12:15)
[2021-03-17] MEDS: MULTIVITAMINS, THERA 1 EACH TAB PO SCH (12:15)
[2021-03-17] MEDS: FOLIC ACID 1 MG TAB PO SCH (12:15)
[2021-03-17 12:37] LABS: African American GFR (CKD) 116.4 (60.0-200.0); Anion Gap 6.2 mmol/L (4.00-12.00); Calcium 8.8 mg/dL (8.7-10.3); Carbon Dioxide 26.8 mmol/L (21.6-31.8); Non-African American GFR(CKD) 100.5 (60.0-200.0); Potassium 3.1 mmol/L (3.5-5.5)
[2021-03-17] MEDS ORDERED: Potassium Replacement Protocol 1 EACH MISC MISCELLANE PRN (13:24)
[2021-03-17] MEDS: POTASSIUM CHLORIDE ER 20 MEQ TAB.ER PO SCH (15:10)
[2021-03-17] MEDS: SODIUM CHLORIDE 0.9% 1,000 ML IV SCH (15:10)
[2021-03-17 18:20] LABS: Basophils # (A) 0.02 X 10*3/uL (0.00-0.10); Basophils % (A) 0.3 %; Eosinophils # (A) 0.07 X 10*3/uL (0.04-0.35); Eosinophils % (A) 0.9 %; HCT 30.3 % (37.2-46.3); HGB 9.7 g/dL (12.0-15.0); Lymphocytes # (A) 1.01 X 10*3/uL (0.90-5.00); MCH 31.3 pg (27.0-32.0); MCV 97.7 fL (80.0-97.0); Mean Platelet Volume 10.5 fL (9.5-12.2); Monocytes % (A) 7.7 %; Neutrophils # (A) 6.02 X 10*3/uL (1.80-7.70); Neutrophils % (A) 77.7 %; Platelet Count 250 X 10*3/uL (140-440); WBC 7.75 X 10*3/uL (4.50-10.00)
[2021-03-17] MEDS: SENNOSIDES-DOCUSATE SODIUM 1 EACH TAB PO SCH (20:21)
[2021-03-17] MEDS: ATORVASTATIN 20 MG TAB PO SCH (20:22)
[2021-03-18] MEDS: ACETAMINOPHEN TAB 325 MG TAB PO PRN ×2 (00:27→07:29)
[2021-03-18] MEDS: SODIUM CHLORIDE 0.9% 1,000 ML IV SCH (03:20)
--- NOTE | 2021-03-18 06:02 | P.PN ---
Subjective Progress Note Date: 03/17/21 75-year-old female was admitted for right hip fracture, intertrochanteric fracture patient will undergo surgical intervention today when I evaluated the patient patient just received Dilaudid and was drowsy and sleepy. Review of systems: Unable to obtain due to her clinical condition 03/16/2021 Patient apparently has history of dementia patient is significantly confused at this time. Avoid opiates, anticholinergic medications most of the opiates were discontinued will use Tylenol and a very low dose of [place] for pain if needed. Toradol can be considered as well with GI prophylaxis and close monitoring of kidney function. 03/17/2021 Patient is seen and evaluated in follow up status post right hip closed hip reduction with nailing. Patient right hip surgical site with sutures noted is dry and intact with no surrounding redness or swelling noted. Patient continues to have pain and continues to be weak and having PT/OT evaluate. Patient states she is feeling short of breath at times but also remains confused. Chest xray shows some underlying emphysema with no acute process. Patient denies any chest pain or palpitations. Potassium found to be 3.1 and being replaced. Will repeat labs. All inpatient medications were reviewed and appropriate changes in these medications as dictated in the interval history and assessment and plan. Objective - Vital Signs Vital signs: Vital Signs Temp 97.8 F 03/18/21 02:00 Pulse 78 03/18/21 02:00 Resp 16 03/18/21 02:00 BP 150/61 03/18/21 02:00 Pulse Ox 97 03/18/21 02:00 Intake & Output 03/17/21 03/17/21 03/18/21 06:59 18:59 06:59 Output Total 1080 Balance -1080 Output: Urine 1080 Other: Voiding Method Bedside Commode Toilet Indwelling Catheter Bedside Commode Indwelling Catheter # Voids 2 4 - Exam GENERAL: Significantly confused Well developed, well nourished. HEENT: Pupils are round and equally reacting to light. EOMI. No scleral icterus. No conjunctival pallor. Normocephalic, atraumatic. No pharyngeal erythema. No thyromegaly. CARDIOVASCULAR: S1 and S2 present. No murmurs, rubs, or gallops. PULMONARY: diminished breath sounds with no wheezing or crackles noted. ABDOMEN: Soft, nontender, nondistended, normoactive bowel sounds. No palpable organomegaly. MUSCULOSKELETAL: Deferred to orthopedic surgery EXTREMITIES: No cyanosis, clubbing, or pedal edema. NEUROLOGICAL: Gross neurological examination did not reveal any focal deficits. SKIN: No rashes. right hip surgical site is dry and clean with no surrounding redness or swelling noted. sutures noted as well - Labs CBC & Chem 7: 03/17/21 14:04 03/17/21 06:29 Labs: Abnormal Lab Results - Last 24 Hours (Table) 03/17/21 03/17/21 03/17/21 Range/Units 06:29 06:29 14:04 RBC 3.33 L 3.10 L (4.10-5.20) X 10*6/uL Hgb 10.7 L 9.7 L (12.0-15.0) g/dL Hct 32.3 L 30.3 L (37.2-46.3) % MCV 97.7 H (80.0-97.0) fL MCH 32.1 H (27.0-32.0) pg Potassium 3.1 L (3.5-5.5) mmol/L Chloride 110 H (96-109) mmol/L Creatinine 0.4 L (0.6-1.5) mg/dL BUN/Creatinine Ratio 30.00 H (12.00-20.00) Ratio Glucose 128 H (70-110) mg/dL Assessment and Plan Assessment: -Mechanical fall with right hip fracture status post closed reduction and intramedullary nailing. -Altered mental status probably secondary to toxic encephalopathy from pain medications and will continue with non-opioid pain relievers and avoid narcotics if possible -hypokalemia, currently 3.1 and being replaced. will repeat am lab. -Hypertension continue with present blood pressure medication, HCTZ being held -Asthma without any acute exacerbation -History of breast cancer in remission -Right-sided ovarian cyst no further intervention at this time -Obesity -Mildly elevated liver enzymes no further intervention at this time Plan: continue with current medications and will continue to follow closely with orthopedics. Patient needs continued encouragement with incentive spirometer and will be evaluated by PT/OT. chest xray done as mentioned previously. Possible ecf placement. will continue to monitor. repeat am labs after electrolyte replacement.
[2021-03-18 07:25] LABS: African American GFR (CKD) >90 (>60 ml/min/1.73 sqM); Anion Gap 4 mmol/L; Blood Urea Nitrogen 6 mg/dL (7-17); Calcium 8.9 mg/dL (8.4-10.2); Carbon Dioxide 26 mmol/L (22-30); Chloride 111 mmol/L (98-107); Glucose 108 mg/dL (74-99); Non-African American GFR(CKD) >90 (>60 ml/min/1.73 sqM); Potassium 3.6 mmol/L (3.5-5.1); Sodium 141 mmol/L (137-145)
[2021-03-18] MEDS: PANTOPRAZOLE 40 MG/10 ML VIAL IVP SCH (07:29)
[2021-03-18] MEDS: METOPROLOL SUCCINATE (ER) 100 MG TAB.ER.24H PO SCH (07:30)
[2021-03-18] MEDS: THIAMINE 100 MG TAB PO SCH (07:30)
[2021-03-18] MEDS: VALSARTAN 160 MG TAB PO SCH (07:30)
[2021-03-18] MEDS: cloNIDine HCL 0.1 MG TAB PO SCH (07:30)
[2021-03-18] MEDS: FOLIC ACID 1 MG TAB PO SCH (07:30)
[2021-03-18] MEDS: MULTIVITAMINS, THERA 1 EACH TAB PO SCH (07:30)
[2021-03-18] MEDS: APIXABAN 2.5 MG TABLET PO SCH (07:30)
[2021-03-18 07:37] VITALS: BP 118/71; PULSE 83; RESP 17; TEMP 98.2
--- NOTE | 2021-03-18 09:02 | P.DS ---
Providers Date of admission: 03/14/21 10:37 Expected date of discharge: 03/18/21 Attending physician: Twin Hearn Consults: 03/14/21 10:38 Consult Physician Routine Consulting Provider: Josephine Aguirre Consult Reason/Comments: adnexal mass Do you want consulting provider notified?: Yes Consult Physician Urgent Consulting Provider: Trisha Awad Consult Reason/Comments: medical care Do you want consulting provider notified?: Yes Primary care physician: Pedrito Clifton - Discharge Diagnosis(es) (1) Intertrochanteric fracture of right femur Current Visit: Yes Status: Acute (2) Fall Current Visit: Yes Status: Acute Hospital Course: This is an 75-year-old female who sustained a fracture of her right hip after a fall at home. The patient presented for evaluation in the emergency room. After discussion and consideration patient elects to proceed with closed reduction and intramedullary nailing of the right hip. The patient is seen preoperatively by Dr. Hearn and medically cleared for surgery by internal medicine. Patient is admitted to [facility] on 03/14/2021 and closed reduction and intramedullary nailing of the right hip is performed on 03/15/2021. The procedure is performed without complication or sequelae. The patient is doing well postoperatively. Labs and vital signs are stable on day of discharge. On day of discharge patient's hip incision is healing well. There is minimal erythema. There is no drainage noted at this time. There is minimal soft tissue swelling to the hip and thigh. Patient has full foot and ankle motion without difficulty or pain. Calf is soft and nontender to palpation. Neurovascular status to the right lower extremity is intact. Patient is discharged home in good condition. Please see med rec for accurate list of home medications. Plan - Discharge Summary Discharge Rx Participant: Yes New Discharge Prescriptions: New Apixaban [Eliquis] 2.5 mg PO BID 35 Days #70 tab HYDROcodone/APAP 5-325MG [[place] 5-325] 1 - 2 tab PO Q6HR PRN #30 tab PRN Reason: Pain Sennosides [Senokot] 2 tab PO DAILY PRN #60 tablet PRN Reason: Constipation No Action Simvastatin [Zocor] 40 mg PO HS Valsartan/Hydrochlorothiazide [Valsartan-Hctz 160-25 mg Tab] 1 tab PO DAILY Aspirin EC [Ecotrin Low Dose] 81 mg PO HS Metoprolol Succinate [Toprol XL] 100 mg PO DAILY Discharge Medication List Aspirin EC [Ecotrin Low Dose] 81 mg PO HS 03/14/21 [History] Metoprolol Succinate [Toprol XL] 100 mg PO DAILY 03/14/21 [History] Simvastatin [Zocor] 40 mg PO HS 03/14/21 [History] Valsartan/Hydrochlorothiazide [Valsartan-Hctz 160-25 mg Tab] 1 tab PO DAILY 03/14/21 [History] Apixaban [Eliquis] 2.5 mg PO BID 35 Days #70 tab 03/15/21 [Rx] Sennosides [Senokot] 2 tab PO DAILY PRN #60 tablet 03/15/21 [Rx] HYDROcodone/APAP 5-325MG [[place] 5-325] 1 - 2 tab PO Q6HR PRN #30 tab 03/18/21 [Rx] Follow up Appointment(s)/Referral(s): [facility],Equipment [NON-STAFF] - (Please call [facility] if you have questions regarding your commode chair or walker. ) [facility], [NON-STAFF] - ([facility] will call you to arrange for your first visit which will be within 24-48 hours of discharge. ) Pedrito Clifton MD [Primary Care Provider] - 1-2 days Twin Hearn DO [Doctor of Osteopathic Medicine] - 10 Days Activity/Diet/Wound Care/Special Instructions: Weightbearing as tolerated. Daily dressing changes. May shower in 24-48 hours if no drainage from the incision. Kyleigh to be removed in 10-14 days. Please take Eliquis twice daily for 35 days to prevent blood clots. Recommend use of compression stockings daily until follow up to help prevent swe lling and blood clots. May remove at night before sleeping. Please follow-up with [facility] in 2 weeks and call with any questions or concerns, . Patient requires a bedside commode due to being room confined because of a right intertrochanteric fracture Discharge Disposition: HOME WITH HOME HEALTH SERVICES
--- NOTE | 2021-03-18 15:24 | P.PN ---
Subjective Progress Note Date: 03/18/21 75-year-old female was admitted for right hip fracture, intertrochanteric fracture patient will undergo surgical intervention today when I evaluated the patient patient just received Dilaudid and was drowsy and sleepy. Review of systems: Unable to obtain due to her clinical condition 03/16/2021 Patient apparently has history of dementia patient is significantly confused at this time. Avoid opiates, anticholinergic medications most of the opiates were discontinued will use Tylenol and a very low dose of [place] for pain if needed. Toradol can be considered as well with GI prophylaxis and close monitoring of kidney function. 03/17/2021 Patient is seen and evaluated in follow up status post right hip closed hip reduction with nailing. Patient right hip surgical site with sutures noted is dry and intact with no surrounding redness or swelling noted. Patient continues to have pain and continues to be weak and having PT/OT evaluate. Patient states she is feeling short of breath at times but also remains confused. Chest xray shows some underlying emphysema with no acute process. Patient denies any chest pain or palpitations. Potassium found to be 3.1 and being replaced. Will repeat labs. 03/18/2021 Patient is seen in follow-up this morning with no acute overnight issues. Patient Is currently sitting up in the chair and plans are for being discharged to home with home care today per request. Vital signs are stable and patient remains afebrile. Potassium was replaced yesterday and is currently 3.6 today current sodium is 141 and creatinine is 0.35. Patient has been working with physical therapy and does have a walker along with the commode at the bedside. Review of systems: Constitutional: No reports of fatigue, fever, or chills Cardiovascular: No reports of chest pain or palpitations Respiratory: No reports of shortness of breath or cough GI: No reports of nausea, vomiting, or diarrhea : No reports of dysuria or retention Neurovascular: Reports generalized weakness and some mild right hip pain All inpatient medications were reviewed and appropriate changes in these medications as dictated in the interval history and assessment and plan. Objective - Vital Signs Vital signs: Vital Signs Temp 98.2 F 03/18/21 07:36 Pulse 83 03/18/21 07:36 Resp 17 03/18/21 07:36 BP 118/71 03/18/21 07:36 Pulse Ox 100 03/18/21 07:36 Intake & Output 03/17/21 03/18/21 03/18/21 18:59 06:59 18:59 Output Total 1080 Balance -1080 Output: Urine 1080 Other: Voiding Method Toilet Bedside Commode Indwelling Catheter # Voids 4 2 - Exam GENERAL: Continues to be confused although somewhat more alert today. Well developed, well nourished. HEENT: Pupils are round and equally reacting to light. EOMI. No scleral icterus. No conjunctival pallor. Normocephalic, atraumatic. No pharyngeal erythema. No th yromegaly. CARDIOVASCULAR: S1 and S2 present. No murmurs, rubs, or gallops. PULMONARY: diminished breath sounds with no wheezing or crackles noted. ABDOMEN: Soft, nontender, nondistended, normoactive bowel sounds. No palpable organomegaly. MUSCULOSKELETAL: Deferred to orthopedic surgery EXTREMITIES: No cyanosis, clubbing, or pedal edema. NEUROLOGICAL: Gross neurological examination did not reveal any focal deficits. SKIN: No rashes. right hip surgical site is dry and clean with no surrounding redness or swelling noted. Kyleigh noted as well - Labs CBC & Chem 7: 03/17/21 14:04 03/18/21 06:15 Labs: Abnormal Lab Results - Last 24 Hours (Table) 03/17/21 03/17/21 03/17/21 Range/Units 06:29 06:29 14:04 RBC 3.33 L 3.10 L (4.10-5.20) X 10*6/uL Hgb 10.7 L 9.7 L (12.0-15.0) g/dL Hct 32.3 L 30.3 L (37.2-46.3) % MCV 97.7 H (80.0-97.0) fL MCH 32.1 H (27.0-32.0) pg Potassium 3.1 L (3.5-5.5) mmol/L Chloride 110 H (96-109) mmol/L BUN (7-17) mg/dL Creatinine 0.4 L (0.6-1.5) mg/dL BUN/Creatinine Ratio 30.00 H (12.00-20.00) Ratio Glucose 128 H (70-110) mg/dL 03/18/21 Range/Units 06:15 RBC (4.10-5.20) X 10*6/uL Hgb (12.0-15.0) g/dL Hct (37.2-46.3) % MCV (80.0-97.0) fL MCH (27.0-32.0) pg Potassium (3.5-5.5) mmol/L Chloride 111 H (96-109) mmol/L BUN 6 L (7-17) mg/dL Creatinine 0.35 L (0.6-1.5) mg/dL BUN/Creatinine Ratio (12.00-20.00) Ratio Glucose 108 H (70-110) mg/dL Assessment and Plan Assessment: -Mechanical fall with right hip fracture status post closed reduction and intramedullary nailing. -Altered mental status probably secondary to toxic encephalopathy from pain medications and will continue with non-opioid pain relievers and avoid narcotics if possible -hypokalemia, improved, repeat potassium after replacement today is 3.6 -Hypertension continue with present blood pressure medication, may resume home medications upon discharge -Asthma without any acute exacerbation -History of breast cancer in remission -Right-sided ovarian cyst no further intervention at this time -Obesity -Mildly elevated liver enzymes no further intervention at this time Plan: continue with current medications and will continue to follow closely with orthopedics. Instructed the patient to continue using incentive spirometer at home. Patient's would like to take the patient home and will continue with home care as he does not want her going to a rehab facility at this time. Potassium was replaced and is improved at 3.6. Patient is being discharged today. Recommend outpatient follow-up with primary care provider.
== END 2021-03-18 13:26 | disposition home health service (06) | DRG 480 ==
LOC: EC 08:38 → 4SSUR 10:37
PROVIDERS: ADMIT Orthopaedic Surgery; ATTEND Orthopaedic Surgery
PROC: 0QH606Z Insertion of Intramedullary Internal Fixation Device into Right Upper Femur, Open Approach (ICD-10-PCS; principal; 2021-03-15 16:10)
DX: S72.141A Displaced intertrochanteric fracture of right femur, initial encounter for closed fracture (principal); G92 Toxic encephalopathy; E66.9 Obesity, unspecified; E87.6 Hypokalemia; Z20.822 Contact with and (suspected) exposure to COVID-19; F03.90 Unspecified dementia, unspecified severity, without behavioral disturbance, psychotic disturbance, mood disturbance, and anxiety; I10 Essential (primary) hypertension; J45.909 Unspecified asthma, uncomplicated; N83.201 Unspecified ovarian cyst, right side; Z87.891 Personal history of nicotine dependence; Z85.3 Personal history of malignant neoplasm of breast; Z79.899 Other long term (current) drug therapy; Z79.82 Long term (current) use of aspirin; Y92.009 Unspecified place in unspecified non-institutional (private) residence as the place of occurrence of the external cause; W18.30XA Fall on same level, unspecified, initial encounter; R74.8 Abnormal levels of other serum enzymes; T40.2X5A Adverse effect of other opioids, initial encounter; Y92.230 Patient room in hospital as the place of occurrence of the external cause; K59.00 Constipation, unspecified
CPT/HCPCS: 36415; 71045; 73501; 73502; 76856; 80048; 80053; 81001; 82550; 85025; 85027; 85610; 85730; 87635; 93005; 93976; 96360; 99285

== ENCOUNTER 2021-04-01 15:13 | Observation (INO) | payer MEDICARE ==
--- NOTE | 2021-04-01 15:48 | ED ---
General Adult HPI - General Chief complaint: Altered Mental Status Stated complaint: Altered Mental Status Time Seen by Provider: 04/01/21 15:17 Source: EMS Mode of arrival: EMS Limitations: physical limitation - History of Present Illness Initial comments: Dictation was produced using [employer] dictation software. please excuse any grammatical, word or spelling errors. Chief Complaint: 75-year-old female transferred from [facility] for chest pain History of Present Illness: Patient's 75-year-old female she was transferred f [facility]. Patient initially was at her primary care physician's office. She is currently resident was a [facility]. At the primary care physician's office she was evaluated for chest pain and EKG is performed and she was sent to emergency department where she was evaluated [facility]. Work up was performed. According documentation patient had nonspecific EKG normal troponin results. She did have clinical evidence concerning for dehydration including elevated BUN/creatinine ratio and dry mucous membranes. Patient has been having poor oral intake. She states that she's been having poor oral intake since her hip surgery 4 weeks ago. Currently patient is not having symptoms she feels well. She does not have any chest pain. Patient states that earlier today she had left-sided chest pain without any radiation. No history of coronary artery disease. The ROS documented in this emergency department record has been reviewed and confirmed by me. Those systems with pertinent positive or negative responses have been documented in the HPI. All other systems are other negative and/or noncontributory. PHYSICAL EXAM: General Impression: Alert and oriented x3, not in acute distress HEENT: Normocephalic atraumatic, extra-ocular movements intact, pupils equal and reactive to light bilaterally, mucous membranes moist. Cardiovascular: Heart regular rate and rhythm Chest: Able to complete full sentences, no retractions, no tachypnea Abdomen: abdomen soft, non-tender, non-distended, no organomegaly Musculoskeletal: Pulses present and equal in all extremities, no peripheral edema Motor: no focal deficits noted Neurological: CN II-XII grossly intact, no focal motor or sensory deficits noted Skin: Intact with no visualized rashes Psych: Normal affect and mood ED course: 75-year-old female transferred from [facility] for chest pain. Transfer documentation was reviewed. Patient did have evidence of dehydration on her labs. Vital signs upon arrival are within acceptable limits. EKG is performed showing ventricular rate 99, normal sinus rhythm. Interval 150, trace 24, QTC 487. EKG is similar to EKG from 03/14/2021. No evidence of ischemia or infarction. Patient has benign physical examination. She denies any chest pain or shortness of breath. Metabolic panel and troponin was ordered showing no changes. Potassiums improved 3.5. Troponin is negative. Patient states that she fell approximately one week ago from weakness. Computed tomography scan of the head and C-spine was unremarkable. Patient will be admitted. Case discussed with Dr. Gibbs. - Related Data Home Medications Medication Instructions Recorded Confirmed Metoprolol Succinate [Toprol XL] 100 mg PO DAILY 03/14/21 04/01/21 Simvastatin [Zocor] 40 mg PO HS 03/14/21 04/01/21 Valsartan/Hydrochlorothiazide 1 tab PO DAILY 03/14/21 04/01/21 [Valsartan-Hctz 160-25 mg Tab] Multivitamins, Thera [Multivitamin 1 tab PO DAILY@1200 04/01/21 04/01/21 (formulary)] Nitroglycerin Sl Tabs [Nitrostat] 0.4 mg SUBLINGUAL Q5M PRN 04/01/21 04/01/21 Sennosides [Senokot] 17.2 tab PO DAILY PRN 04/01/21 04/01/21 Previous Rx's Medication Instructions Recorded Apixaban [Eliquis] 2.5 mg PO BID 35 Days #70 tab 03/15/21 Acetaminophen Tab [Tylenol] 650 mg PO Q6HR PRN tab 03/18/21 Folic Acid 1 mg PO DAILY@1200 tab 03/18/21 HYDROcodone/APAP 5-325MG [[place] 1 - 2 tab PO Q6HR PRN #30 tab 03/18/21 5-325] Magnesium Hydroxide [Milk of 2,400 mg PO DAILY PRN ml 03/18/21 Magnesia Concentrate] Thiamine [Vitamin B-1] 100 mg PO DAILY@1200 tab 03/18/21 Allergies Allergy/AdvReac Type Severity Reaction Status Date / Time Sulfa (Sulfonamide Allergy Rash/Hives Verified 04/01/21 16:04 Antibiotics) Review of Systems ROS Statement: Those systems with pertinent positive or pertinent negative responses have been documented in the HPI. ROS Other: All systems not noted in ROS Statement are negative. Past Medical History Past Medical History: Asthma, Cancer Additional Past Medical History / Comment(s): Right breast cancer 1993, History of Any Multi-Drug Resistant Organisms: None Reported Past Surgical History: Breast Surgery, Tonsillectomy Past Anesthesia/Blood Transfusion Reactions: No Reported Reaction Past Psychological History: No Psychological Hx Reported Smoking Status: Former smoker Past Alcohol Use History: Occasional Past Drug Use History: None Reported General Exam Limitations: physical limitation Course Vital Signs 04/01/21 04/01/21 15:26 15:47 Pulse Rate 91 100 Respiratory 20 20 Rate Blood Pressure 107/68 110/69 O2 Sat by Pulse 100 95 Oximetry Medical Decision Making - Lab Data Result diagrams: 04/01/21 15:38 Lab Results 04/01/21 04/01/21 Range/Units 15:38 15:38 Sodium 140 (137-145) mmol/L Potassium 3.5 (3.5-5.1) mmol/L Chloride 105 (98-107) mmol/L Carbon Dioxide 23 (22-30) mmol/L Anion Gap 12 mmol/L BUN 37 H (7-17) mg/dL Creatinine 0.97 (0.52-1.04) mg/dL Est GFR (CKD-EPI)AfAm 65 (>60 ml/min/1.73 sqM) Est GFR (CKD-EPI)NonAf 57 (>60 ml/min/1.73 sqM) Glucose 93 (74-99) mg/dL Calcium 9.9 (8.4-10.2) mg/dL Troponin I <0.012 (0.000-0.034) ng/mL Disposition Clinical Impression: Chest pain, Dehydration Disposition: ADMITTED IP TO THIS HOSP Condition: Fair Referrals: Pedrito Clifton MD [Primary Care Provider] - 1-2 days
[2021-04-01 16:17] LABS: Calcium 9.9 mg/dL (8.4-10.2); Potassium 3.5 mmol/L (3.5-5.1)
[2021-04-01] MEDS ORDERED: SODIUM CHLORIDE 0.9% 1,000 ML IV STA (16:38)
--- NOTE | 2021-04-01 16:44 | CT ---
EXAMINATION TYPE: CT brain oviine wo con DATE OF EXAM: 04/01/2021 COMPARISON: None HISTORY: Pain CT DLP: 1282.9 mGycm Automated exposure control for dose reduction was used. TECHNIQUE: CT scan of the head and cervical spine are performed without contrast. FINDINGS: Generalized degenerative change noted. Low-attenuation the white matter is nonspecific bu t most typical of remote white matter ischemia. Orbits are symmetric. Calvarium intact. Craniocervica l junction maintained. Sella turcica has a normal appearance. Assessment spinal canal markedly limited due to artifact. Multilevel hypertrophic and degenerative ch anges. Biapical pleural thickening. No acute fracture. Odontoid intact. Motion artifact limits the ex am. IMPRESSION: 1. There is no acute fracture or dislocation evident in the cervical spine. 2. No acute intracranial hemorrhage, mass effect, or midline shift is seen.
[2021-04-01] MEDS ORDERED: NITROGLYCERIN SL TABS 0.4 MG TAB SUBLINGUAL PRN (16:48)
[2021-04-01] MEDS ORDERED: SENNOSIDES 8.6 MG TAB PO PRN (18:23)
[2021-04-01] MEDS ORDERED: ACETAMINOPHEN TAB 325 MG TAB PO PRN (18:23)
[2021-04-01] MEDS ORDERED: MAGNESIUM HYDROXIDE 2,400 MG/10 ML CUP PO PRN (18:23)
[2021-04-01] MEDS ORDERED: HYDROcodone/APAP 5-325MG 1 EACH TAB PO PRN (18:25)
[2021-04-01] MEDS ORDERED: NALOXONE 0.4 MG/ML 1 ML VIAL IV PRN (18:26)
[2021-04-01] MEDS ORDERED: ONDANSETRON 4 MG/2 ML VIAL IVP PRN (18:26)
[2021-04-01] MEDS ORDERED: MAG HYDROX/AL HYDROX/SIMETH 30 ML CUP PO PRN (18:26)
[2021-04-01] MEDS ORDERED: LACTULOSE 20 GM/30 ML CUP PO PRN (18:26)
[2021-04-01] MEDS ORDERED: MELATONIN 3 MG TABLET PO PRN (18:26)
[2021-04-01] MEDS ORDERED: LORazepam 0.5 MG TAB PO PRN (18:26)
[2021-04-01] MEDS ORDERED: CALCIUM CARBONATE 500 MG CHEWABLE PO PRN (18:26)
[2021-04-01] MEDS: APIXABAN 2.5 MG TABLET PO SCH (19:45)
[2021-04-01] MEDS ORDERED: ATORVASTATIN 20 MG TAB PO SCH (21:00)
--- NOTE | 2021-04-01 22:05 | P.HPIM ---
History of Present Illness H&P Date: 04/01/21 Chief Complaint: Chest pain History of presenting complaint: This is a 75-year-old patient, was chronic stable medical conditions include asthma, osteoarthritis, hypertension. Patient was transferred here from [facility]. Patient was at a family care physician's office. Is a resident of local [facility]. She was seen there for chest pain and EKG is performed and sent to the ER. Because of underlying cognitive impairment she was not able to give much of her history. Patient appetite has been down. Appetite has been down since she had a surgery about 4 weeks ago. Just doesn't feel too well. The chest pain did not radiate. No dizziness or lightheadedn ess. Patient's limited historian. also simple questions Review of systems: GEN.: Tired EYES: None HEENT: None NECK: None RESPIRATORY: None CARDIOVASCULAR: As above GASTROINTESTINAL: None GENITOURINARY: None MUSCULOSKELETAL: [Joint pains LYMPHATICS: None HEMATOLOGICAL: None PSYCHIATRY: Forgetful NEUROLOGICAL: None Past medical history to include: Asthma, osteoporosis, hypertension, cognitive impairment Social history: Resident of [facility]. Did smoke in the past. Alcohol occasionally. Family history: Reviewed, noncontributory to presentation Physical examination: VITAL SIGNS: 97.5, 83, 18, 170-71, 100% room air GENERAL: BMI 20.1, laying in bed, but anxious. EYES: Pupils equal. Conjunctiva normal. HEENT: External appearance of nose and ears normal, oral cavity grossly normal. NECK: JVD not raised; masses not palpable. HEART: First and second heart sounds are normal; no edema. LUNGS: Respiratory rate normal; clear to auscultation. ABDOMEN: Soft, nontender, liver spleen not palpable, no masses palpable. PSYCH: [Patient can answer simple questions, does not which hospital she is at. Does not know the year of the month. MUSCULAR skeletal: Evidence of OA in multiple joints NEUROLOGICAL: Cranial nerves grossly intact; no facial asymmetry, power and sensation grossly intact. LYMPHATICS: No lymph nodes palpable in the axilla and neck INVESTIGATIONS, reviewed in the clinical context: Potassium 3.5 BUN 37 creatinine 0.97 Troponin I 2 both negative Assessment plan: -Chest pain. Patient unable to give more details. Initial cardiac enzymes are negative. -Major cognitive impairment likely from late onset Alzheimer's dementia -Intermittent asthma Stable -Essential hypertension Continue valsartan and hydrochlorothiazide. Toprol-XL -Recent right hip surgery On eliquis for DVT prophylaxis Patient is put on telemetry. Cardiac enzymes are being monitored. Home medications resumed. No family members present. Cardiology consulted. Past Medical History Past Medical History: Asthma, Cancer Additional Past Medical History / Comment(s): Right breast cancer 1993, History of Any Multi-Drug Resistant Organisms: None Reported Past Surgical History: Breast Surgery, Tonsillectomy Past Anesthesia/Blood Transfusion Reactions: No Reported Reaction Past Psychological History: No Psychological Hx Reported Smoking Status: Former smoker Past Alcohol Use History: Occasional Past Drug Use History: None Reported Medications and Allergies Home Medications Medication Instructions Recorded Confirmed Type Metoprolol Succinate [Toprol XL] 100 mg PO DAILY 03/14/21 04/01/21 History Simvastatin [Zocor] 40 mg PO HS 03/14/21 04/01/21 History Valsartan/Hydrochlorothiazide 1 tab PO DAILY 03/14/21 04/01/21 History [Valsartan-Hctz 160-25 mg Tab] Apixaban [Eliquis] 2.5 mg PO BID 35 Days #70 tab 03/15/21 04/01/21 Rx Acetaminophen Tab [Tylenol] 650 mg PO Q6HR PRN tab 03/18/21 04/01/21 Rx Folic Acid 1 mg PO DAILY@1200 tab 03/18/21 04/01/21 Rx HYDROcodone/APAP 5-325MG [[place] 1 - 2 tab PO Q6HR PRN #30 tab 03/18/21 04/01/21 Rx 5-325] Magnesium Hydroxide [Milk of 2,400 mg PO DAILY PRN ml 03/18/21 04/01/21 Rx Magnesia Concentrate] Thiamine [Vitamin B-1] 100 mg PO DAILY@1200 tab 03/18/21 04/01/21 Rx Multivitamins, Thera [Multivitamin 1 tab PO DAILY@1200 04/01/21 04/01/21 History (formulary)] Nitroglycerin Sl Tabs [Nitrostat] 0.4 mg SUBLINGUAL Q5M PRN 04/01/21 04/01/21 History Sennosides [Senokot] 17.2 tab PO DAILY PRN 04/01/21 04/01/21 History Allergies Allergy/AdvReac Type Severity Reaction Status Date / Time Sulfa (Sulfonamide Allergy Rash/Hives Verified 04/01/21 16:04 Antibiotics) Physical Exam Vitals: Vital Signs Temp Pulse Pulse Pulse Resp BP BP 04/01/21 18:59 97.8 F 84 16 123/75 04/01/21 18:05 04/01/21 17:55 97.5 F L 83 18 117/71 04/01/21 15:47 100 20 110/69 04/01/21 15:26 91 20 107/68 Pulse Ox 04/01/21 18:59 100 04/01/21 18:05 98 04/01/21 17:55 100 04/01/21 15:47 95 04/01/21 15:26 100 Intake and Output 04/01/21 04/01/21 04/01/21 06:59 14:59 22:59 Intake Total 120 Balance 120 Intake: Oral 120 Other: # Voids 4 # Bowel Movements 0 Weight 58.151 kg Results CBC & Chem 7: 04/01/21 15:38 Labs: Abnormal Lab Results - Last 24 Hours (Table) 04/01/21 Range/Units 15:38 BUN 37 H (7-17) mg/dL Thrombosis Risk Factor Assmnt - Choose All That Apply Any of the Below Risk Factors Present?: No Other Risk Factors: Yes Each Risk Factor Represents 3 Points: Age 75 years or older Thrombosis Risk Factor Assessment Total Risk Factor Score: 3 Thrombosis Risk Factor Assessment Level: Moderate Risk
[2021-04-02 07:41] VITALS: BP 122/61; RESP 16; TEMP 97.4
--- NOTE | 2021-04-02 07:57 | P.CRDCN ---
History of Present Illness Consult date: 04/02/21 Chief complaint: Chest pain History of present illness: This is a very pleasant 75-year-old female patient who requested to severe on the observation unit for chest discomfort. The patient does have mild cognitive disorder and she somewhat poor historian. She was transferred from another facility. We requested to see the patient for chest discomfort. Currently the patient is chest pain-free. Because she is a poor historian and the history was taken mainly from the chart. Apparently she was transferred from an extended care facility to another hospital with a chest discomfort. No shortness of breath. No dizziness or lightheadedness. No feeling of heart racing or fluttering or syncope. The workup overall came in to be unremarkable in terms of EKG as well as cardiac enzymes. According to the patient no prior history of coronary artery disease. She is on oral anticoagulation with Eliuis for unknown reason. Past Medical History Past Medical History: Asthma, Cancer Additional Past Medical History / Comment(s): Right breast cancer 1993, History of Any Multi-Drug Resistant Organisms: None Reported Past Surgical History: Breast Surgery, Tonsillectomy Past Anesthesia/Blood Transfusion Reactions: No Reported Reaction Past Psychological History: No Psychological Hx Reported Smoking Status: Former smoker Past Alcohol Use History: Occasional Past Drug Use History: None Reported Medications and Allergies Home Medications Medication Instructions Recorded Confirmed Type Metoprolol Succinate [Toprol XL] 100 mg PO DAILY 03/14/21 04/01/21 History Simvastatin [Zocor] 40 mg PO HS 03/14/21 04/01/21 History Valsartan/Hydrochlorothiazide 1 tab PO DAILY 03/14/21 04/01/21 History [Valsartan-Hctz 160-25 mg Tab] Apixaban [Eliquis] 2.5 mg PO BID 35 Days #70 tab 03/15/21 04/01/21 Rx Acetaminophen Tab [Tylenol] 650 mg PO Q6HR PRN tab 03/18/21 04/01/21 Rx Folic Acid 1 mg PO DAILY@1200 tab 03/18/21 04/01/21 Rx HYDROcodone/APAP 5-325MG [[place] 1 - 2 tab PO Q6HR PRN #30 tab 03/18/21 04/01/21 Rx 5-325] Magnesium Hydroxide [Milk of 2,400 mg PO DAILY PRN ml 03/18/21 04/01/21 Rx Magnesia Concentrate] Thiamine [Vitamin B-1] 100 mg PO DAILY@1200 tab 03/18/21 04/01/21 Rx Multivitamins, Thera [Multivitamin 1 tab PO DAILY@1200 04/01/21 04/01/21 History (formulary)] Nitroglycerin Sl Tabs [Nitrostat] 0.4 mg SUBLINGUAL Q5M PRN 04/01/21 04/01/21 History Sennosides [Senokot] 17.2 tab PO DAILY PRN 04/01/21 04/01/21 History Allergies Allergy/AdvReac Type Severity Reaction Status Date / Time Sulfa (Sulfonamide Allergy Rash/Hives Verified 04/01/21 16:04 Antibiotics) Physical Exam Vitals: Vital Signs Temp Pulse Pulse Pulse Resp BP BP 04/02/21 07:00 97.4 F L 77 16 122/61 04/02/21 04:15 97.7 F 78 17 04/01/21 18:59 97.8 F 84 16 04/01/21 18:05 04/01/21 17:55 97.5 F L 83 18 04/01/21 15:47 100 20 110/69 04/01/21 15:26 91 20 107/68 BP Pulse Ox 04/02/21 07:00 100 04/02/21 04:15 108/70 99 04/01/21 18:59 123/75 100 04/01/21 18:05 98 04/01/21 17:55 117/71 100 04/01/21 15:47 95 04/01/21 15:26 100 Intake and Output 04/01/21 04/02/21 04/02/21 22:59 06:59 14:59 Intake Total 120 Balance 120 Intake: Oral 120 Other: # Voids 4 1 # Bowel Movements 0 Weight 58.151 kg - Constitutional General appearance: no acute distress - Respiratory Respiratory: bilateral: diminished - Cardiovascular Rhythm: regular Heart sounds: normal: S1, S2 Abnormal Heart Sounds: systolic murmur Results 04/01/21 15:38 Cardiac Enzymes 04/01/21 04/01/21 04/01/21 Range/Units 15:38 18:53 22:14 Troponin I <0.012 <0.012 <0.012 (0.000-0.034) ng/mL Comprehensive Metabolic Panel 04/01/21 Range/Units 15:38 Sodium 140 (137-145) mmol/L Potassium 3.5 (3.5-5.1) mmol/L Chloride 105 (98-107) mmol/L Carbon Dioxide 23 (22-30) mmol/L BUN 37 H (7-17) mg/dL Creatinine 0.97 (0.52-1.04) mg/dL Glucose 93 (74-99) mg/dL Calcium 9.9 (8.4-10.2) mg/dL Current Medications Generic Name Dose Route Start Last Admin Trade Name Freq PRN Reason Stop Dose Admin Acetaminophen 650 mg 04/01/21 18:23 Acetaminophen Tab 325 Mg Tab PO Q6HR PRN Fever and/ or Pain Hydrocodone Bitart/Acetaminophen 1 each 04/01/21 18:25 Hydrocodone/Apap 5-325mg 1 Each Tab PO Q6HR PRN Pain Al Hydroxide/Mg Hydroxide 15 ml 04/01/21 18:26 Mag Hydrox/Al Hydrox/Simeth 30 Ml Cup PO Q6HR PRN Indigestion Apixaban 2.5 mg 04/01/21 21:00 04/01/21 19:45 Apixaban 2.5 Mg Tablet PO 2.5 mg BID FIDE Administration Protocol Aspirin 325 mg 04/02/21 09:00 Aspirin 325 Mg Tab PO DAILY FIDE Atorvastatin Calcium 20 mg 04/01/21 21:00 04/01/21 19:46 Atorvastatin 20 Mg Tab PO 20 mg HS FIDE Administration Calcium Carbonate/Glycine 1,000 mg 04/01/21 18:26 Calcium Carbonate 500 Mg Chewable PO Q4HR PRN Dyspepsia Folic Acid 1 mg 04/02/21 09:00 Folic Acid 1 Mg Tab PO DAILY@0900 FIDE Hydrochlorothiazide 25 mg 04/02/21 09:00 Hydrochlorothiazide 25 Mg Tab PO DAILY FIDE Lactulose 20 gm 04/01/21 18:26 Lactulose 20 Gm/30 Ml Cup PO DAILY PRN Constipation Lorazepam 0.5 mg 04/01/21 18:26 04/01/21 19:45 Lorazepam 0.5 Mg Tab PO 0.5 mg Q6HR PRN Administration Anxiety Magnesium Hydroxide 2,400 mg 04/01/21 18:23 Magnesium Hydroxide 2,400 Mg/10 Ml Cup PO DAILY PRN Constipation Melatonin 3 mg 04/01/21 18:26 04/01/21 21:46 Melatonin 3 Mg Tablet PO 3 mg HS PRN Administration Insomnia Metoprolol Succinate 100 mg 04/02/21 09:00 Metoprolol Succinate (Er) 100 Mg Tab.Er.24h PO DAILY [facility] Multivitamins 1 each 04/02/21 09:00 Multivitamins, Thera 1 Each Tab PO DAILY@0900 [facility] Naloxone HCl 0.2 mg 04/01/21 18:26 Naloxone 0.4 Mg/Ml 1 Ml Vial IV Q2M PRN Opioid Reversal Nitroglycerin 0.4 mg 04/01/21 16:48 Nitroglycerin Sl Tabs 0.4 Mg Tab SUBLINGUAL Q5M PRN Chest Pain Ondansetron HCl 4 mg 04/01/21 18:26 Ondansetron 4 Mg/2 Ml Vial IVP Q8HR PRN Nausea And Vomiting Senna 8.6 mg 04/01/21 18:23 Sennosides 8.6 Mg Tab PO DAILY PRN Constipation Thiamine HCl 100 mg 04/02/21 09:00 Thiamine 100 Mg Tab PO DAILY@0900 [facility] Valsartan 160 mg 04/02/21 09:00 Valsartan 160 Mg Tab PO DAILY [facility] Intake and Output 04/01/21 04/02/21 04/02/21 22:59 06:59 14:59 Intake Total 120 Balance 120 Intake: Oral 120 Other: # Voids 4 1 # Bowel Movements 0 Weight 58.151 kg 04/01/21 15:38 Assessment and Plan Assessment: Assessment #1 atypical chest discomfort #2 multiple comorbid conditions Plan #1 acute coronary syndrome was ruled out #2 from the cardiac standpoint the patient can be discharged home
[2021-04-02 08:54] LABS: Chol/HDL Ratio 3.73
[2021-04-02] MEDS ORDERED: hydroCHLOROthiazide 25 MG TAB PO SCH (09:00)
[2021-04-02] MEDS ORDERED: MULTIVITAMINS, THERA 1 EACH TAB PO SCH (09:00)
[2021-04-02] MEDS ORDERED: METOPROLOL SUCCINATE (ER) 100 MG TAB.ER.24H PO SCH (09:00)
[2021-04-02] MEDS ORDERED: VALSARTAN 160 MG TAB PO SCH (09:00)
[2021-04-02] MEDS ORDERED: FOLIC ACID 1 MG TAB PO SCH (09:00)
[2021-04-02] MEDS ORDERED: THIAMINE 100 MG TAB PO SCH (09:00)
[2021-04-02] MEDS ORDERED: ASPIRIN 325 MG TAB PO SCH (09:00)
[2021-04-02] MEDS: APIXABAN 2.5 MG TABLET PO SCH (09:14)
[2021-04-02 13:30] VITALS: PULSE 83
--- NOTE | 2021-04-02 18:06 | P.DS ---
Providers Date of admission: 04/01/21 16:50 Expected date of discharge: 04/02/21 Attending physician: Ab Gibbs Consults: 04/01/21 16:48 Consult Physician Urgent Consulting Provider: Georgina Zavaleta Consult Reason/Comments: chest pain Do you want consulting provider notified?: Yes Primary care physician: Pedrito Clifton [facility] Course: Chief Complaint: Chest pain History of presenting complaint: This is a 75-year-old patient, was chronic stable medical conditions include asthma, osteoarthritis, hypertension. Patient was transferred here from [facility]. Patient was at a family care physician's office. Is a resident of local [facility]. She was seen there for chest pain and EKG is performed and sent to the ER. Because of underlying cognitive impairment she was not able to give much of her history. Patient appetite has been down. Appetite has been down since she had a surgery about 4 weeks ago. Just doesn't feel too well. The chest pain did not radiate. No dizziness or lightheadedness. Patient's limited historian. also simple questions Patient had no further symptoms. EKG troponins were negative. Patient was seen by cardiology. Cleared for discharge. Consultation: Dr. Garcia from cardiology Past medical history to include: Asthma, osteoporosis, hypertension, cognitive impairment Social history: Resident of [facility]. Did smoke in the past. Alcohol occasionally. Family history: Reviewed, noncontributory to presentation Physical examination: VITAL SIGNS: 97.4, 77, 16, 122/61, 100% room air GENERAL: BMI 20.1, laying in bed, but anxious. EYES: Pupils equal. Conjunctiva normal. HEENT: External appearance of nose and ears normal, oral cavity grossly normal. NECK: JVD not raised; masses not palpable. HEART: First and second heart sounds are normal; no edema. LUNGS: Respiratory rate normal; clear to auscultation. ABDOMEN: Soft, nontender, liver spleen not palpable, no masses palpable. PSYCH: [Patient can answer simple questions, does not which hospital she is at. Does not know the year of the month. MUSCULAR skeletal: Evidence of OA in multiple joints INVESTIGATIONS, reviewed in the clinical context: EKG tracing personally reviewed by me-normal sinus rhythm LDL 93 Potassium 3.5 BUN 37 creatinine 0.97 Troponin I 2 both negative Assessment plan: -Chest pain. Patient unable to give more details. Initial cardiac enzymes are negative. Cleared by currently for discharge. Not for any further workup. -Major cognitive impairment likely from late onset Alzheimer's dementia -Intermittent asthma Stable -Essential hypertension Continue valsartan and hydrochlorothiazide. Toprol-XL -Recent right hip surgery On eliquis for DVT prophylaxis Disposition: Home Patient Condition at Discharge: Fair Plan - Discharge Summary Discharge Rx Participant: No New Discharge Prescriptions: New Aspirin 81 mg PO DAILY #1 chewable Continue Simvastatin [Zocor] 40 mg PO HS Apixaban [Eliquis] 2.5 mg PO BID 35 Days #70 tab Folic Acid 1 mg PO DAILY@1200 tab Magnesium Hydroxide [Milk of Magnesia Concentrate] 2,400 mg PO DAILY PRN ml PRN Reason: Constipation HYDROcodone/APAP 5-325MG [[place] 5-325] 1 - 2 tab PO Q6HR PRN #30 tab PRN Reason: Pain Multivitamins, Thera [Multivitamin (formulary)] 1 tab PO DAILY@1200 Metoprolol Succinate [Toprol XL] 100 mg PO DAILY Acetaminophen Tab [Tylenol] 650 mg PO Q6HR PRN tab PRN Reason: Fever And/ Or Pain Thiamine [Vitamin B-1] 100 mg PO DAILY@1200 tab Sennosides [Senokot] 17.2 tab PO DAILY PRN PRN Reason: Constipation Nitroglycerin Sl Tabs [Nitrostat] 0.4 mg SUBLINGUAL Q5M PRN PRN Reason: Chest Pain Changed Valsartan/Hydrochlorothiazide [Valsartan-Hctz 160-25 mg Tab] 1 tab PO HS #0 Discharge Medication List Metoprolol Succinate [Toprol XL] 100 mg PO DAILY 03/14/21 [History] Simvastatin [Zocor] 40 mg PO HS 03/14/21 [History] Apixaban [Eliquis] 2.5 mg PO BID 35 Days #70 tab 03/15/21 [Rx] Acetaminophen Tab [Tylenol] 650 mg PO Q6HR PRN tab 03/18/21 [Rx] Folic Acid 1 mg PO DAILY@1200 tab 03/18/21 [Rx] HYDROcodone/APAP 5-325MG [[place] 5-325] 1 - 2 tab PO Q6HR PRN #30 tab 03/18/21 [Rx] Magnesium Hydroxide [Milk of Magnesia Concentrate] 2,400 mg PO DAILY PRN ml 03/18/21 [Rx] Thiamine [Vitamin B-1] 100 mg PO DAILY@1200 tab 03/18/21 [Rx] Multivitamins, Thera [Multivitamin (formulary)] 1 tab PO DAILY@1200 04/01/21 [History] Nitroglycerin Sl Tabs [Nitrostat] 0.4 mg SUBLINGUAL Q5M PRN 04/01/21 [History] Sennosides [Senokot] 17.2 tab PO DAILY PRN 04/01/21 [History] Aspirin 81 mg PO DAILY #1 chewable 04/02/21 [Rx] Valsartan/Hydrochlorothiazide [Valsartan-Hctz 160-25 mg Tab] 1 tab PO HS #0 04/02/21 [Rx] Follow up Appointment(s)/Referral(s): Pedrito Clifton MD [Primary Care Provider] - 1-2 days
== END 2021-04-02 14:18 | disposition home or self-care (01) ==
LOC: EC 15:13 → 6NMEDSUR 16:50
PROVIDERS: ADMIT Hospitalist; ATTEND Hospitalist
DX: R07.89 Other chest pain (principal); G31.84 Mild cognitive impairment of uncertain or unknown etiology; J45.20 Mild intermittent asthma, uncomplicated; I10 Essential (primary) hypertension; E86.0 Dehydration; M19.90 Unspecified osteoarthritis, unspecified site; M81.0 Age-related osteoporosis without current pathological fracture; F09 Unspecified mental disorder due to known physiological condition; Z87.891 Personal history of nicotine dependence; Z85.3 Personal history of malignant neoplasm of breast; Z79.01 Long term (current) use of anticoagulants; Z79.899 Other long term (current) drug therapy; Z88.2 Allergy status to sulfonamides; Z91.81 History of falling
CPT/HCPCS: 99285; 36415; 94760; 93005; 80061; 80048; 84484; 72125; 70450; G0378 ×2